=== PATIENT | male | born 1950 | race Caucasian/White ===

== ENCOUNTER 2021-01-15 11:07 | Emergency (ER) | payer MEDICARE, MEDICAID, SELFPAY ==
[2021-01-15] VITALS (9 sets, daily range): BP systolic 122–138; BP diastolic 64–73; PULSE 64–83; RESP 15–18; TEMP 36.5–37.1; O2SAT 95–99; BMI 30.8
--- NOTE | 2021-01-15 11:43 | RAD_ITS ---
STUDY: X-RAY CHEST REASON FOR EXAM: Male, 70 years old. Fever TECHNIQUE: Single AP portable view of the chest. COMPARISON: None. FINDINGS: The lungs are clear and expanded. There is no demonstrated pleural abnormality. Normal size heart. Normal mediastinum and michael. Normal visualized pulmonary arteries. Normal visualized aortic arch and descending thoracic aorta. Mild degenerative changes in the thoracic spine and right shoulder. There is no demonstrated abnormality of the visualized soft tissue structures of the upper abdomen. RAD/Chest 1 View (Portable) IMPRESSION: No active pulmonary disease. Electronically Signed: Jg Xie MD at 13:04 EDT Tel , Service support ,
--- NOTE | 2021-01-15 11:43 | EKG12_ITS ---
Test Reason : Blood Pressure : / mmHG Vent. Rate : 070 BPM Atrial Rate : 070 BPM P-R Int : 158 ms QRS Dur : 078 ms QT Int : 434 ms P-R-T Axes : 038 -22 027 degrees QTc Int : 468 ms Normal sinus rhythm Leftward axis Low voltage QRS Nonspecific T wave abnormality Prolonged QT Abnormal ECG Confirmed by THAI ADDISON, ALBERTO ([id number]), legal editor FRITZ CORRALES ([id number]) on 01/18/2021 10:30:53 AM Referred By: REBECA Confirmed By:ALBERTO ANDRE MD
--- NOTE | 2021-01-15 11:44 | EDS_ITS ---
HPI History of Present Illness Chief Complaint: Fever Informant: patient and spouse/S.O. Onset/Context/Timing Onset: Days (3) Context: Gradual Onset Timing: Continuous and Waxes and wanes Quality: 102.6 Current Severity: Mild Maximum Severity: Moderate Worsened by: nothing Relieved by: tylenol Associated Symptoms Associated Symptoms: myalgias, fatigue, abnormal taste; no other symptoms Narrative Narrative: As above, fever, myalgias, fatigue, and changes in taste this morning with no other symptoms. No cough or shortness of breath or GI symptoms. No problems urinating. No contact with anyone that he knows of who has been ill lately. No travel out of the area. Patient has never had Covid, and he did have the Pfizer vaccine both injections this past July. He did have a headache yesterday but it is gone now/today. [facility] Medical History (Updated 01/15/21 @ 15:[address] Neo Wells MD) Hypertension Type 2 diabetes mellitus Home Medications amoxicillin-pot clavulanate 875 mg PO Q12H #20 tablet 01/15/21 [Rx Last Taken Unknown] Allergy/AdvReac Type Severity Reaction Status Date / Time No Known Allergies Allergy Verified 01/15/21 11:09 Social History Smoking Status: Current every day smoker tobacco type: cigarettes ROS ROS ED Constitutional Constitutional ED: Reports body ache(s), chills, fever(s) and malaise Eyes Eyes: Denies change in vision or diplopia ENT ENT ED: Denies rhinorrhea or sore throat Cardiovascular Cardiovascular: Denies chest pain or palpitations Respiratory/Chest Respiratory/Chest: Denies cough or dyspnea Gastrointestinal Gastrointestinal: Denies abdominal pain, diarrhea, nausea or vomiting Genitourinary Genitourinary ED: Denies dysuria or hematuria Musculoskeletal Musculoskeletal: Denies back pain or neck pain Integumentary Denies abscess or rash Neurologic Neurologic: Denies headache(s), paresthesias or weakness Psychiatric Psychiatric: Denies anxiety or suicidal thoughts EXAM Physical Exam Const Vital Signs: 01/15/21 11:09 01/15/21 11:58 01/15/21 12:43 Temperature 98 F 98 F 98.5 F Temperature Source Oral Oral Oral Pulse Rate 83 Respiratory Rate 18 Respiratory Effort Normal Non-Labored Blood Pressure 138/73 H Blood Pressure Mean 94 Pulse Ox 98 95 Oxygen Delivery Method Room Air 01/15/21 13:00 01/15/21 13:08 01/15/21 14:00 Temperature 98.7 F 98.5 F Temperature Source Oral Oral Pulse Rate 64 Respiratory Rate 18 Respiratory Effort Blood Pressure 135/67 H Blood Pressure Mean 89 Pulse Ox 99 Oxygen Delivery Method Room Air 01/15/21 15:00 Temperature Temperature Source Pulse Rate 69 Respiratory Rate 18 Respiratory Effort Blood Pressure 122/64 H Blood Pressure Mean 83 Pulse Ox 99 Oxygen Delivery Method Room Air Positive well nourished and well developed General Appearance ED: well developed and NAD HEENT Reports moist mucous membranes normocephalic and atraumatic Face and Sinus: sinuses nontender Eyes PERRL and EOMs intact bilaterally Neck full ROM and supple Resp normal respiratory effort and clear to auscultation bilaterally Cardio regular rate, regular rhythm and no murmurs Rate: Negative for tachycardic GI non-tender and non-distended Auscultation: normoactive bowel sounds Palpation: soft Back/Spine no CVA tenderness General Back: other FROM Extremity normal to inspection General Extremety ED: Negative for edema, pulses abnormal or tenderness General Extremity: Negative for edema or pulses abnormal Neuro oriented x3, CN's II-XII intact bilaterally and no sensory deficits noted Sensorium / Orientation: awake and alert Motor Exam: strength 5/5 throughout Skin no rashes or lesions noted and no wounds MDM MDM MDM Narrative Medical decision making narrative: Work-up is remarkably unremarkable except for slightly elevated alkaline phosphatase which is nonspecific. He has no abdominal symptoms or vomiting. Given that he had headaches with this fever, which certainly could be a result of the fever itself, but has no other source including negative influenza and Covid swabs, I performed CT of the sinuses. It shows mucosal thickening in sphenoid sinus, and no other evidence of disease. It is certainly possible this could be the cause, however I am not sure if findings the soft or causing fevers of 102. The patient is very well-appearing and has no other symptoms. He has not traveled out of the area. He is neck is asymptomatic and he is not confused and in my opinion does not need a lumbar puncture. Certainly he could simply have a viral syndrome especially with a white blood count of 5.4. I think it would be reasonable to cover the sphenoid sinus findings with Augmentin and have him follow-up as an outpatient or return if worse, I discussed all this with he and his and they are comfortable with that plan. Lab Data Attestation: I reviewed the patient's lab results. Labs: Laboratory Results - last 24 hr 01/15/21 01/15/21 01/15/21 11:24 11:24 11:24 WBC 5.4 RBC 5.72 Hgb 16.7 H Hct 50.0 MCV 87.4 MCH 29.2 MCHC 33.4 RDW Std Deviation 44.3 H RDW Coeff of Samm 13.8 Plt Count 151 MPV 11.7 Immature Gran % (Auto) 0.600 Neut % (Auto) 75.6 H Lymph % (Auto) 12.9 L Sandoval % (Auto) 9.4 Eos % (Auto) 1.1 Baso % (Auto) 0.4 Absolute Neuts (auto) 4.1 Absolute Lymphs (auto) 0.70 L Nucleated RBC % 0 Sodium 137 Potassium 3.6 Chloride 105 Carbon Dioxide 25.0 Anion Gap 7 BUN 10 Creatinine 1.02 Estim Creat Clear Calc 67.39 Est GFR (MDRD) Af Amer 93 Est GFR (MDRD) Non-Af 77 BUN/Creatinine Ratio 9.8 L Glucose 112 H Lactic Acid 1.5 Calcium 8.6 Total Bilirubin 1.10 H AST 63 H ALT 61 Alkaline Phosphatase 226 H Total Protein 7.3 Albumin 3.5 Globulin 3.8 Albumin/Globulin Ratio 0.9 Urine Color Urine Clarity Urine pH Ur Specific [place] Urine Protein Urine Glucose (UA) Urine Ketones Urine Occult Blood Urine Nitrite Urine Bilirubin Urine Urobilinogen Ur Leukocyte Esterase Urine RBC Urine WBC Ur Squamous Epith Cells Urine Bacteria Urine Mucus 01/15/21 12:57 WBC RBC Hgb Hct MCV MCH MCHC RDW Std Deviation RDW Coeff of Samm Plt Count MPV Immature Gran % (Auto) Neut % (Auto) Lymph % (Auto) Sandoval % (Auto) Eos % (Auto) Baso % (Auto) Absolute Neuts (auto) Absolute Lymphs (auto) Nucleated RBC % Sodium Potassium Chloride Carbon Dioxide Anion Gap BUN Creatinine Estim Creat Clear Calc Est GFR (MDRD) Af Amer Est GFR (MDRD) Non-Af BUN/Creatinine Ratio Glucose Lactic Acid Calcium Total Bilirubin AST ALT Alkaline Phosphatase Total Protein Albumin Globulin Albumin/Globulin Ratio Urine Color Yellow Urine Clarity Clear Urine pH 5.0 Ur Specific [place] 1.020 Urine Protein 30 H Urine Glucose (UA) Normal Urine Ketones 5 H Urine Occult Blood Negative Urine Nitrite Negative Urine Bilirubin 3 H Urine Urobilinogen 4 H Ur Leukocyte Esterase 25 H Urine RBC 0 SEEN Urine WBC 0 SEEN Ur Squamous Epith Cells 0-5 SEEN Urine Bacteria 0 SEEN Urine Mucus 0 SEEN Radiography Chest X-Ray - ED: 1 View, Read by ED Physician and No Acute Disease Diagnostic Testing: Radiology Impression Chest X-Ray 01/15/21 11:43 IMPRESSION: No active pulmonary disease. Electronically Signed: Jg Xie MD at 13:04 EDT Tel , Service support , Facial/Sinus 01/15/21 13:13 IMPRESSION: 1. Mild mucosal thickening or retention cyst in the left sphenoid sinus. 2. Otherwise no evidence of sinus disease. Electronically Signed: Jg Xie MD at 14:44 EDT Tel , Service support , EKG Initial EKG: Attestation: I personally reviewed and interpreted this EKG as follows: Interpretation: Sinus Rhythm, No Acute Injury Pattern and Non-Specific ST Changes Comments: Leftward axis Discharge Plan Triage Chief Complaint: Fever ED Provider: Neo Wells Dx/Rx/DC Orders Clinical Impression: Fever, Sphenoid sinusitis Instructions: Understanding Your Sinuses, ED FUO Adult Prescriptions: New amoxicillin-pot clavulanate [amoxicillin-pot clavulanate] 875 MG tablet 875 mg PO Q12H Qty: 20 RF: 0 Primary Care Provider: Michael Cannon Referrals: Michael Cannon MD [Primary Care Provider] - 3-5 Days if not improving Disposition Disposition: Home, Self Care
[2021-01-15 11:56] LABS: Absolute Neutrophil Count 4.1 X10^3/uL (2.0-7.7); Basophil# 0.02 X10^3/uL; Basophil% 0.4 % (0-1); Eosinophil# 0.06 X10^3/uL; Eosinophils% 1.1 % (0-5); Hemoglobin 16.7 g/dL (13.0-16.5); Lymphocyte % 12.9 % (19-41); Mean Corp Hgb Conc 33.4 g/dL (32-36); Mean Corpuscular Hgb 29.2 pg (27.0-32.0); Mean Corpuscular Volume 87.4 fL (80-94); Mean Platelet Vol. 11.7 fl (6.2-12.0); Monocyte# 0.51 X10^3/uL; Monocyte% 9.4 % (0-10); NRBC Flagged by Analyzer 0 % (0-5); Neutrophil # 4.11 X10^3/uL (2.7-7.7); Neutrophil % 75.6 % (47-70); Platelet Count 151 K/mm3 (150-450); RBC Distribution Width CV 13.8 % (11.6-14.6); RBC Distribution Width SD 44.3 fl (35.1-43.9); Red Blood Count 5.72 M/mm3 (4.6-6.2); White Blood Count 5.4 K/mm3 (4.4-11.0)
[2021-01-15 12:03] LABS: ALB/GLOB Ratio 0.9 RATIO (0.9-2.4); AST(SGOT) 63 U/L (15-37); Alanine Aminotransfer ALT/SGPT 61 U/L (16-61); Albumin, Serum 3.5 g/dL (3.2-5.0); Alkaline Phosphatase 226 U/L (45-117); Anion Gap 7 (5-15); BUN 10 mg/dL (7-18); BUN/Creat Ratio 9.8 RATIO (10-20); Calcium,Total 8.6 mg/dL (8.5-10.1); Chloride 105 mmol/L (98-107); Creatinine, Serum 1.02 mg/dL (0.70-1.30); EST Glomerular Filtration Rate 77 mL/min (>60); Est Glom Filt Rate - Afr Amer 93 mL/min (>60); Estimated Creatinine Clearance 67.39 ml/min; Globulin 3.8 g/dL (2.2-4.2); Glucose 112 mg/dL (74-106); Potassium 3.6 mmol/L (3.5-5.1); Protein, Total 7.3 g/dL (6.4-8.2); Sodium Level 137 mmol/L (136-145)
[2021-01-15 12:06] LABS: Lactic Acid 1.5 mmol/L (0.4-1.9)
[2021-01-15 13:01] LABS: Bacteria 0 SEEN /hpf (None Seen); Mucous, Urine 0 SEEN /hpf (<or=2+); Red Blood Cells-Urine 0 SEEN /hpf (0-5); White Blood Cells 0 SEEN /hpf (0-5)
[2021-01-15 13:03] LABS: Color, Urine Yellow (Yellow); Glucose, Dipstick Normal (Normal); Ketone-Dipstick 5 mg/dl (Negative); Leukocyte Esterase-Dipstick 25 /ul (Negative); Nitrite-Dipstick Negative (Negative); Occult Blood-Urine Negative /ul (Negative); Protein-Dipstick 30 mg/dl (Negative); Urine Bilirubin Dipstick 3 mg/dL (Negative); Urine Clarity Clear (Clear); Urine Urobilinogen 4 mg/dl (Normal)
--- NOTE | 2021-01-15 13:13 | CT_ITS ---
STUDY: CT MAXILLOFACIAL SINUSES REASON FOR EXAM: Male, 70 years old. Fever, headache RADIATION DOSAGE (If Supplied By Facility): CTDIvol = ( 29.38 ) mGy, DLP = ( 407.88 ) mGycm TECHNIQUE: The patient was scanned in a multi detector CT scanner. High resolution axial imaging was performed without the administration of intravenous contrast material. Sagittal and coronal images were reconstructed. Individualized dose optimization techniques were used for this CT. COMPARISON: None. FINDINGS: FRONTAL SINUSES: Normal aeration, without mucosal inflammatory disease. ETHMOIDAL SINUSES: Normal aeration, without mucosal inflammatory disease. MAXILLARY SINUSES: Normal aeration, without mucosal inflammatory disease. SPHENOIDAL SINUSES: Mild mucosal thickening or retention polyp in the left sphenoid sinus. There is patency of the bilateral maxillary infundibuli with normal uncinate processes, ethmoid bullae, and hiatus semilunaris. Normal bilateral middle turbinates. Normal bilateral inferior turbinates. There is a right sided nasal septal deviation with a right sided nasal septal spur. There is patency of the bilateral nasal airways. The visualized osseous structures are normal. The visualized bilateral orbital contents are normal. CT/Sinus/Facial Bone IMPRESSION: 1. Mild mucosal thickening or retention cyst in the left sphenoid sinus. 2. Otherwise no evidence of sinus disease. Electronically Signed: Jg Xie MD at 14:44 EDT Tel , Service support ,
[2021-01-15 13:39] LABS: Squamous Epithelial Cells - UA 0-5 SEEN /hpf (0-5)
[2021-01-15] MEDS: Amox/Clavulanate 875 MG Tablet PO (15:47)
== END 2021-01-15 15:59 | disposition home or self-care (01) ==
PROVIDERS: Emergency Provider Emergency Medicine; PCP Family Medicine
DX: R50.9 Fever, unspecified (principal); J32.3 Chronic sphenoidal sinusitis; F17.210 Nicotine dependence, cigarettes, uncomplicated
CPT/HCPCS: 70486; 71045; 80053; 81001; 83605; 85025; 87040; 87086; 87426; 87804; 93005; 99285; A4216

== ENCOUNTER 2021-07-11 14:19 | Outpatient (CLI) | payer MEDICARE, MEDICAID, SELFPAY ==
--- NOTE | 2021-07-11 14:31 | CT_ITS ---
STUDY: CT FACIAL BONES WITHOUT CONTRAST REASON FOR EXAM: Male, 70 years old. ORAL LESION in the roof of the mouth. RADIATION DOSAGE (If Supplied By Facility): CTDIvol = ( 29.38 ) mGy, DLP = ( 635.61 ) mGycm TECHNIQUE: The patient was scanned in a multi detector CT scanner. Sagittal and coronal images were reconstructed. Individualized dose optimization techniques were used for this CT. COMPARISON: None. FINDINGS: Normal soft tissue structures. Normal orbital de los santos and orbital contents. Normal nasal bones and anterior nasal spine. Normal facial bones. There is no demonstrated fracture. Normal visualized paranasal sinuses. CT/Sinus/Facial Bone IMPRESSION: Normal unenhanced CT of the facial bones. Electronically Signed: Josiah Newton MD at 14:54 EST , Service support ,
== END 2021-07-11 23:59 | disposition short-term general hospital (02) ==
LOC: CT 14:27
PROVIDERS: PCP Family Medicine; Referring Provider Otolaryngology; Visit Provider Otolaryngology
DX: D37.09 Neoplasm of uncertain behavior of other specified sites of the oral cavity (principal); R22.0 Localized swelling, mass and lump, head
CPT/HCPCS: 70486

== ENCOUNTER 2021-07-19 05:45 | Day surgery (SDC) | payer MEDICARE, MEDICAID, SELFPAY ==
--- NOTE | 2021-07-19 | LES_PTH ---
PATIENT: WILMER BARAJAS Jr. LOC: [facility] [place] U#:[id number] AGE/SX: 70/M ROOM: RE07/19/[address]: Dr. Brendon Rose MD : 1950 BED: DIS: 07/19/2021 SPEC #: [id number] RECD: 07/19/21 12:37 STATUS: ANKUSH RELamberto #: [id number] KEITH: 07/19/21 00:[address]: Brendon Rose DEPT: SURGICAL PATHOLOGY RECD BY: Kartik Shields ENTERED: 07/19/21 12:38 SP TYPE: Lesion OTHR DR: Dr. Michael Cannon MD Tissues: Palate, NOS Procedures: Special Stain Group I Surgery Specimen Level IV GMS Stain (control) HEADER OPERATION: Excision oral lesions PRE-OP DIAGNOSIS: Neoplasm of oral cavity TISSUE SUBMITTED: Hard palate lesion MICROSCOPIC DIAGNOSIS Hard palate lesion, excision: Benign vascular proliferations consistent with hemangioma. Acanthosis, hyperkeratosis and parakeratosis. See comment. YAMILA:rosey 07/20/2021 COMMENT Special stain for fungi is negative for organisms; matched control is appropriate. Clinical correlation and appropriate follow up are necessary. Case has been reviewed in consultation with Dr. Mccarthy who concurs with the above diagnosis. IDC:AM MICROSCOPIC DESCRIPTION Slides are reviewed. GROSS DESCRIPTION Received in fixative is one container labeled with the patient's name and designated hard palate lesion. The specimen consists of a round piece of chavez mucosa measuring 0.5 x 0.5 x 0.1 cm. The specimen is inked, bisected and submitted entirely in one cassette. / YAMILA:rosey 07/19/2021 TC:1 CPT: 54416, 03397
[2021-07-19 06:26] VITALS: BP 140/76; PULSE 69; RESP 18; TEMP 36.9; O2SAT 100; BMI 31.8
[2021-07-19] MEDS: Lactated Ringers 1,000 ML 15 ML IV (06:46)
[2021-07-19 07:06] LABS: Bedside Glucose 147 mg/dL (70-110)
[2021-07-19] MEDS: Lidocaine 1% /Epi 1:100 (50ml) 50 ML VIAL (08:20)
--- NOTE | 2021-07-19 08:35 | PCM.DC ---
Discharge Instructions Diet Discharge Diet: No restrictions Activity Discharge Activity: Return to Normal Activity Follow Up Care Please Follow Up With: Andrew Rose MD When: 1 month Test Results: Test results from this visit will be discussed in further detail at your follow-up appointment, if applicable. Discharge Plan Admission Attending Provider: Andrew Rose Primary Care Provider: Michael Cannon Discharge Orders/Prescriptions Prescriptions: No Action atorvastatin 40 mg tablet 40 mg PO QHS RF: 0 pioglitazone [Actos] 45 mg tablet 45 mg PO DAILY RF: 0 omeprazole 40 mg capsule,delayed release(DR/EC) 40 mg PO DAILY RF: 0 amlodipine 10 mg tablet 10 mg PO DAILY RF: 0 lisinopril 40 mg tablet 40 mg PO DAILY RF: 0 magnesium oxide 250 mg magnesium Tablet 250 mg PO BID RF: 0 Januvia 100 mg tablet 100 mg PO DAILY RF: 0 aspirin 81 mg Capsule 81 mg PO DAILY RF: 0 Disposition Discharge Orders: Discharge Patient (Routine); Ordered 07/19/21 Ordered By: Dr. Andrew Rose
--- NOTE | 2021-07-19 08:36 | PCM.OPRPT ---
Problems Associated Problem List Diagnoses (1) Mass of oral cavity: Report of Operation Date of Procedure: 07/19/21 Pre-Operative Diagnosis: oral cavity lesion Post-Operative Diagnosis: oral cavity lesion Surgery/Procedure Performed:: excisional biopsy hard palate lesion Surgeon: Andrew Rose Type of Anesthesia: General Description of Procedure: on the day of the procedure, after appropriate informed consent was obtained, the patient was brought to the operating room and placed in supine position on the operating table. he was placed under general endotracheal anesthesia by the anesthesiologist. the endotracheal tube was secured, the eyes were taped. the table was rotated 90 degrees toward the surgeon. a retractor was placed to open the mouth. a 5mm midline anterior hard palate papular lesion was excised with a 15 blade and cauterized. he was awoken from anesthesia and transferred to the PACU in stable condition.
[2021-07-19 08:39] VITALS: BP 140/76; BP 161/79; PULSE 81; RESP 16; TEMP 36.3; O2SAT 95
[2021-07-19 08:45] VITALS: BP 140/76; BP 152/75; PULSE 80; RESP 16; O2SAT 98
[2021-07-19 08:46] LABS: Bedside Glucose 113 mg/dL (70-110)
[2021-07-19 08:59] VITALS: BP 140/76; BP 140/80; PULSE 76; RESP 16; TEMP 37.1; O2SAT 96
[2021-07-19 09:25] VITALS: BP 140/76
== END 2021-07-19 23:59 | disposition home or self-care (01) ==
LOC: SDC 05:46 → AC 05:47
PROVIDERS: PCP Family Medicine; Referring Provider Otolaryngology; Visit Provider Otolaryngology
PROC: (CPT 42104; principal; 2021-07-19 07:55)
DX: D10.39 Benign neoplasm of other parts of mouth (principal); E11.9 Type 2 diabetes mellitus without complications; Z79.4 Long term (current) use of insulin; M19.90 Unspecified osteoarthritis, unspecified site; K21.9 Gastro-esophageal reflux disease without esophagitis; E78.00 Pure hypercholesterolemia, unspecified; I10 Essential (primary) hypertension; Z79.82 Long term (current) use of aspirin; Z79.899 Other long term (current) drug therapy; F17.200 Nicotine dependence, unspecified, uncomplicated
CPT/HCPCS: 42104; 82962; 88305; 88312; J7120; J0330; J2405

== ENCOUNTER → 2022-05-11 | Outpatient (CLI) | payer MEDICARE, MEDICAID, SELFPAY ==
--- NOTE | 2022-05-11 13:29 | CT_ITS ---
STUDY: LOW DOSE CT LUNG CANCER SCREENING REASON FOR EXAM: Male, 71 years old. HX NICOTINE DEPENDENCE RADIATION DOSAGE (If Supplied By Facility): CTDIvol = ( 4.02 ) mGy, DLP = ( 135.92 ) mGycm TECHNIQUE: No contrast was administered. Low dose technique was utilized (average mAS-38 and kVp 120). 1.25 mm axial source images with a slice interval of 1.25-mm were reconstructed in lung windows. 2.5 mm axial source images with a slice interval of 2.5-mm were reconstructed in lung windows. 5.0 mm axial source images with a slice interval of 5.0-mm were reconstructed in soft tissue windows. COMPARISON: None. NODULES: Small calcified granuloma in the right lung apex. Emphysema: Mild degree of emphysematous changes. There is a 1.97 x 1.7 cm bulla in the posterior aspect of the right upper lobe. Endobronchial lesion: None Aorta: Atherosclerotic calcific plaques. CORONARY ARTERIES: Coronary artery calcification is seen. Heart: Unremarkable Pulmonary artery: Unremarkable Mediastinal nodes: Small mediastinal lymph nodes. Other chest and abdominal findings: CT/Low Dose CT Lung Screening IMPRESSION: Lung-RADS category 2 - Continue annual screening with LDCT in 12 months. IMPORTANT NOTES FOR USE: ACR Lung-RADS Version 1.1 Assessment Categories Release Date: 2018 Category: Coded 0-4 bases on nodule(s) with highest degree of suspicion. Negative screen is defined as categories 1 and 2; a positive screen is defined as categories 3 and 4. Category 3 and 4A nodules that are unchanged on interval CT should be coded as category 2, and individuals returned to screening in 12 months. Category 4X: Category 3 or 4 nodules with additional imaging findings that increase the suspicion of lung cancer, such as spiculation, GGN that doubles in size in 1 year, enlarged lymph notes, etc. Category Modifiers: S (significant finding unrelated to lung cancer) Electronically Signed: Josiah Newton MD at 14:02 EST ,
== END | disposition home or self-care (01) ==
LOC: CT 13:24
PROVIDERS: PCP Family Medicine; Referring Provider Family Medicine; Visit Provider Family Medicine
DX: Z87.891 Personal history of nicotine dependence (principal)
CPT/HCPCS: 71271

== ENCOUNTER → 2022-08-16 | Outpatient (CLI) | payer MEDICARE, SELFPAY ==
[2022-08-16 10:29] LABS: International Normalized Ratio 1.1; Prothrombin Time (Protime)PT. 14.2 SECONDS (11.7-14.9)
[2022-08-16 11:03] LABS: Erythrocyte Sedimentation Rate 5 mm/hr (0-20)
[2022-08-16 11:05] LABS: Absolute Neutrophil Count 5.4 X10^3/uL (2.0-7.7); Basophil# 0.05 X10^3/uL; Basophil% 0.7 % (0-1); Eosinophil# 0.09 X10^3/uL; Eosinophils% 1.3 % (0-5); Hematocrit 48.2 % (40-54); Hemoglobin 15.9 g/dL (13.0-16.5); Lymphocyte % 15.5 % (19-41); Mean Corpuscular Hgb 29.8 pg (27.0-32.0); Mean Corpuscular Volume 90.4 fL (80-94); Mean Platelet Vol. 12.8 fl (6.2-12.0); Monocyte# 0.42 X10^3/uL; Monocyte% 5.9 % (0-10); NRBC Flagged by Analyzer 0 % (0-5); Neutrophil % 75.9 % (47-70); Platelet Count 164 K/mm3 (150-450); RBC Distribution Width SD 46.5 fl (35.1-43.9); Red Blood Count 5.33 M/mm3 (4.6-6.2); White Blood Count 7.1 K/mm3 (4.4-11.0)
[2022-08-16 11:06] LABS: Hemoglobin A1c 5.8 % (3.8-5.6)
[2022-08-16 11:42] LABS: ALB/GLOB Ratio 1.1 RATIO (0.9-2.4); AST(SGOT) 44 U/L (15-37); Alanine Aminotransfer ALT/SGPT 51 U/L (16-61); Albumin, Serum 3.7 g/dL (3.2-5.0); Alkaline Phosphatase 164 U/L (45-117); Anion Gap 8 (5-15); BUN 14 mg/dL (7-18); BUN/Creat Ratio 12.6 RATIO (10-20); CRP < 2.90 mg/L (0.0-3.0); Chloride 109 mmol/L (98-107); Creatinine, Serum 1.11 mg/dL (0.70-1.30); EST Glomerular Filtration Rate 69 mL/min (>60); Est Glom Filt Rate - Afr Amer 84 mL/min (>60); Ferritin 55 ng/mL (26-388); Globulin 3.4 g/dL (2.2-4.2); Glucose 104 mg/dL (74-106); LDH 182 U/L (87-241); Potassium 3.9 mmol/L (3.5-5.1); Protein, Total 7.1 g/dL (6.4-8.2); Sodium Level 141 mmol/L (136-145)
[2022-08-16 12:40] LABS: HIV - WCH Non-Reactive (Nonreactive)
[2022-08-17 14:09] LABS: Anti-Centromere B Ab <0.2 AI (0.0-0.9); Anti-Chromatin <0.2 AI (0.0-0.9); Anti-Jo <0.2 AI (0.0-0.9); Anti-Scleroderma-70 AB <0.2 AI (0.0-0.9); RNP Ab <0.2 AI (0.0-0.9); SJOGREN'S Anti-SS-A test < 0.2 AI (0.0-0.9); SJOGREN'S Anti-SS-B test < 0.2 AI (0.0-0.9); Smith Ab <0.2 AI (0.0-0.9)
[2022-08-17 22:53] LABS: Anti-Mitochondrial AB <20.0 Units (0.0-20.0); Anti-dsDNA Ab <1 IU/mL (0-9)
[2022-08-18 02:08] LABS: Angiotensin Convert Enzyme 17 U/L (14-82); Ceruloplasmin 22.5 mg/dL (16.0-31.0); Cytoplasmic Ab (C-ANCA) <1:20 titer (Neg:<1:20); HEPATITIS B SURFACE AG Negative (Negative); Hep C Antibodies Non Reactive (Non Reactive); Hepatitis A IgM Antibody Negative (Negative); Hepatitis B Core AB IgM Negative (Negative)
[2022-08-18 19:59] LABS: AFP, Tumor Marker 3.1 ng/mL (0.0-8.4); Anti-Smooth Muscle ABS 19 Units (0-19); Copper, Serum or Plasma 99 ug/dL (69-132); Haptoglobin 141 mg/dL (34-355); Perinuclear Ab (P-ANCA) <1:20 titer (Neg:<1:20)
== END | disposition home or self-care (01) ==
PROVIDERS: PCP Family Medicine; Referring Provider Nurse Practitioner Adult Health; Visit Provider Nurse Practitioner Adult Health
DX: R74.8 Abnormal levels of other serum enzymes (principal); E11.9 Type 2 diabetes mellitus without complications; Z79.899 Other long term (current) drug therapy
CPT/HCPCS: 36415; 80053; 80074; 82105; 82140; 82164; 82390; 82525; 82728; 83010; 83036; 83516; 83615; 85025; 85610; 85652; 86140; 86225; 86235; 86256; 86703

== ENCOUNTER → 2022-08-30 | Outpatient (CLI) | payer MEDICARE, MEDICAID, SELFPAY ==
--- NOTE | 2022-08-30 09:04 | US_ITS ---
STUDY: ABDOMINAL ULTRASOUND - ELASTOGRAPHY REASON FOR VISIT: Male, 71 years old. Elevated liver enzymes. Fatty infiltration of the liver. TECHNIQUE: Liver stiffness measurements were obtained on a [employer] RS 85 ultrasound machine using a CA 1-7 probe following the SRU guidelines. 3 measurements were obtained using a 2-D-SWE method. TheIQR/M was 19 % suggesting a quality data set. TECHNICAL QUALITY: Adequate. COMPARISON: Comparison is made with prior examination done earlier today. FINDINGS: Liver: Mild hepatomegaly and fatty infiltration of the liver. Median liver stiffness measured 9.4 kPa. US/Elastography Parenchyma/Organ IMPRESSION: Liver stiffness measures 9.4 kPa compatible with F2-F3 (Mild to moderate liver fibrosis) Metavir score. Electronically Signed: Josiah Newton MD at 18:03 EST ,
--- NOTE | 2022-08-30 09:04 | US_ITS ---
STUDY: ABDOMINAL ULTRASOUND - RIGHT UPPER QUADRANT REASON FOR VISIT: Male, 71 years old elevated liver enzymes TECHNIQUE: Ultrasound evaluation of the right upper quadrant was performed with real-time and static kay-scale imaging. TECHNICAL QUALITY: Adequate. COMPARISON: None. FINDINGS: Liver: The liver is mildly enlarged and measures 18.1 cm. There is increased echogenicity consistent with fatty infiltration. The bile ducts are within normal limits. There is hepatic color flow. The direction of portal flow is hepatopetal. There is no demonstrated mass lesion. Gallbladder: Normal distended gallbladder. The gallbladder wall measures 2.9 mm. There is a negative sonographic Jacob''s sign. There is no pericholecystic fluid. There are multiple echogenic structures within the gallbladder, consistent with multiple gallstones. There is also evidence of 2 small gallbladder polyps. Common Bile Duct (C.B.D.): The common bile duct measures 3.7 mm. Pancreas: Normal size of the head, body and tail of the pancreas. There is increased echogenicity of the pancreas. There is no demonstrated pancreatic mass or cyst. Right Kidney: Normal size of the right kidney. The right kidney measures 11.4 cm x 5.8 cm x 4.2 cm. Normal renal cortex. The right cortex measures 1.4 cm. There is a 1.5 cm x 1.2 cm x 1.3 cm cyst in the lower pole of the right kidney. There is no right hydronephrosis. US/Abdomen Limited IMPRESSION: Mild hepatomegaly and fatty infiltration of the liver. Multiple gallstones. 2. Small gallbladder polyps. Electronically Signed: Josiah Newton MD at 18:02 [facility] ,
== END | disposition home or self-care (01) ==
PROVIDERS: PCP Family Medicine; Referring Provider Nurse Practitioner Adult Health; Visit Provider Nurse Practitioner Adult Health
DX: R74.8 Abnormal levels of other serum enzymes (principal)
CPT/HCPCS: 76705; 76981

== ENCOUNTER → 2022-11-21 | Outpatient (CLI) | payer MEDICARE, MEDICAID, SELFPAY ==
[2022-11-21 09:56] LABS: Absolute Lymphocyte Count 1.08 X10^3/uL (0.83-4.51); Absolute Neutrophil Count 5.9 X10^3/uL (2.0-7.7); Basophil# 0.04 X10^3/uL; Basophil% 0.5 % (0-1); Eosinophil# 0.09 X10^3/uL; Eosinophils% 1.2 % (0-5); Hematocrit 49.3 % (40-54); Lymphocyte # 1.08 X10^3/ul (0.83-4.51); Lymphocyte % 14.2 % (19-41); Mean Corp Hgb Conc 32.5 g/dL (32-36); Mean Corpuscular Hgb 29.7 pg (27.0-32.0); Mean Corpuscular Volume 91.5 fL (80-94); Mean Platelet Vol. 12.8 fl (6.2-12.0); Monocyte# 0.48 X10^3/uL; Monocyte% 6.3 % (0-10); NRBC Flagged by Analyzer 0 % (0-5); Neutrophil % 77.4 % (47-70); Platelet Count 158 K/mm3 (150-450); RBC Distribution Width CV 13.8 % (11.6-14.6); RBC Distribution Width SD 46.7 fl (35.1-43.9); Red Blood Count 5.39 M/mm3 (4.6-6.2); White Blood Count 7.6 K/mm3 (4.4-11.0)
[2022-11-21 10:20] LABS: International Normalized Ratio 1.1; Prothrombin Time (Protime)PT. 13.7 SECONDS (11.7-14.9)
[2022-11-21 10:24] LABS: ALB/GLOB Ratio 0.9 RATIO (0.9-2.4); AST(SGOT) 27 U/L (15-37); Alanine Aminotransfer ALT/SGPT 31 U/L (16-61); Albumin, Serum 3.5 g/dL (3.2-5.0); Alkaline Phosphatase 144 U/L (45-117); Anion Gap 5 (5-15); BUN 13 mg/dL (7-18); BUN/Creat Ratio 11.9 RATIO (10-20); Calcium,Total 9.2 mg/dL (8.5-10.1); Chloride 108 mmol/L (98-107); Creatinine, Serum 1.09 mg/dL (0.70-1.30); EST Glomerular Filtration Rate 71 mL/min (>60); Est Glom Filt Rate - Afr Amer 86 mL/min (>60); Globulin 3.9 g/dL (2.2-4.2); Glucose 115 mg/dL (74-106); Potassium 4.1 mmol/L (3.5-5.1); Protein, Total 7.4 g/dL (6.4-8.2); Sodium Level 142 mmol/L (136-145)
== END | disposition home or self-care (01) ==
LOC: LAB 09:11
PROVIDERS: PCP Family Medicine; Referring Provider Nurse Practitioner Adult Health; Visit Provider Nurse Practitioner Adult Health
DX: K76.0 Fatty (change of) liver, not elsewhere classified (principal); K13.79 Other lesions of oral mucosa
CPT/HCPCS: 36415; 80053; 82140; 85025; 85610

== ENCOUNTER → 2023-03-14 | Outpatient (CLI) | payer MEDICARE, MEDICAID, SELFPAY ==
--- NOTE | 2023-03-14 08:40 | US_ITS ---
STUDY: ABDOMINAL ULTRASOUND - RIGHT UPPER QUADRANT; ELASTOGRAPHY REASON FOR VISIT: Male, 72 years old. Fatty infiltration of the liver. TECHNIQUE: Ultrasound evaluation of the right upper quadrant was performed with real-time and static kay-scale imaging. Point quantification shear wave elastography was performed ([employer]). TECHNICAL QUALITY: Adequate. COMPARISON: Comparison is made with prior study dated August 30, 2022. FINDINGS: Liver: The liver is enlarged and measures 19.2 cm. There is increased echogenicity consistent with fatty infiltration. The bile ducts are within normal limits. There is hepatic color flow. The direction of portal flow is hepatopetal. There is no demonstrated mass lesion. Median liver stiffness measured 11.3 kPa. Gallbladder: Normal distended gallbladder. The gallbladder wall measures 2.8 mm. There is a negative sonographic Jacob''s sign. There is no pericholecystic fluid. There are multiple echogenic structures within the gallbladder, consistent with multiple gallstones. 2 small gallbladder polyps are seen. Common Bile Duct (C.B.D.): The common bile duct measures 2.5 mm. Pancreas: There is increased echogenicity of the pancreas. There is no demonstrated pancreatic mass or cyst. Right Kidney: Normal size of the right kidney. The right kidney measures 11.3 cm x 5.3 cm x 4.8 cm. Normal renal cortex. The right cortex measures 1.6 cm. There is a 1.3 cm x 1.9 cm x 1.8 cm renal cyst. There is no right hydronephrosis. US/ABD Limited w/ Elastography IMPRESSION: 1. Liver stiffness measures 11.3 kPa compatible with F2-F3 (Mild to moderate liver fibrosis) Metavir score. Electronically Signed: Josiah Newton MD at 10:26 EDT ,
== END | disposition home or self-care (01) ==
LOC: US 08:36
PROVIDERS: PCP Family Medicine; Referring Provider Internal Medicine Gastroenterology; Visit Provider Internal Medicine Gastroenterology
DX: K76.0 Fatty (change of) liver, not elsewhere classified (principal)
CPT/HCPCS: 76705; 76981

== ENCOUNTER → 2023-12-04 | Outpatient (CLI) | payer MEDICARE, MEDICAID, SELFPAY ==
--- NOTE | 2023-12-04 07:45 | CT_ITS ---
STUDY: CT ABDOMEN AND PELVIS WITH AND WITHOUT CONTRAST REASON FOR EXAM: Male, 73 years old. NAFLD, R/O HCC -- Triple phase, HCC protocol RADIATION DOSAGE (If Supplied By Facility): CTDIvol = ( 20.57 ) mGy, DLP = ( 2232.22 ) mGycm TECHNIQUE: Transaxial images were obtained from the dome of the diaphragm to the symphysis pubis without oral contrast. ISOVUE 300-100ml was administered. Sagittal and coronal images were reconstructed. Individualized dose optimization techniques were used for this CT. COMPARISON: None. FINDINGS: The visualized lung bases are unremarkable. Coronary artery calcification. Minimal anterior pericardial thickening. There is decreased attenuation of the liver consistent with steatosis. Hepatomegaly. There are small gallstones. Normal spleen. Normal pancreas. There is a small, circumscribed, smooth, low attenuation right adrenal mass, consistent with an adrenal adenoma. This measures 1.6 cm. Normal left adrenal gland. There is a 1.5 cm hypodense nodule in the peripheral lateral aspect of the midportion of the right kidney. This is not a typical cyst. Correlation with ultrasound recommended. There is a 1.1 cm fat-containing nodule in the midportion of left kidney suggestive of a small angiomyolipoma. There is a small hiatal hernia. Normal small intestine. Normal colon. The appendix is visualized and appears normal. There is scattered atherosclerotic calcification of the abdominal aorta, without a demonstrated aneurysm. Normal inferior vena cava. Normal retroperitoneum. Bladder wall thickening. Diffuse heterogeneous enlargement of the prostate with indentation of the bladder base. This measures 6.1 cm x 6.6 cm. Normal abdominal wall. There are diffuse degenerative changes of the visualized lumbar spine. CT/CT Abd/Pelvis W/WO Contrast IMPRESSION: Hepatomegaly and fatty infiltration of the liver. Small gallstones. Findings suggestive of a 1.6 cm right adrenal adenoma. Left renal angiomyolipoma. Hypodense nodule in the right kidney. This atypical cyst. Correlation with ultrasound recommended. Heterogeneous enlargement of the prostate with indentation of the bladder base. Electronically Signed: Josiah Newton MD at 14:08 EDT ,
[2023-12-04 08:16] LABS: CREATININE FINGERSTICK 1.2 mg/dL (0.70-1.30); EGFR FINGERSTICK > 60.0000 mL/min (>60)
[2023-12-04 08:24] LABS: Basophil# 0.04 X10^3/uL; Basophil% 0.7 % (0-1); Eosinophil# 0.12 X10^3/uL; Eosinophils% 2.1 % (0-5); Hematocrit 47.4 % (40-54); Hemoglobin 15.8 g/dL (13.0-16.5); Mean Corp Hgb Conc 33.3 g/dL (32-36); Mean Corpuscular Hgb 29.9 pg (27.0-32.0); Mean Corpuscular Volume 89.6 fL (80-94); Monocyte# 0.38 X10^3/uL; Monocyte% 6.6 % (0-10); NRBC Flagged by Analyzer 0 % (0-5); Neutrophil # 3.96 X10^3/uL (2.7-7.7); Neutrophil % 69.3 % (47-70); Platelet Count 134 K/mm3 (150-450); RBC Distribution Width CV 13.5 % (11.6-14.6); RBC Distribution Width SD 44.4 fl (35.1-43.9); Red Blood Count 5.29 M/mm3 (4.6-6.2); White Blood Count 5.7 K/mm3 (4.4-11.0)
[2023-12-04 08:36] LABS: International Normalized Ratio 1.1; Prothrombin Time (Protime)PT. 14.2 SECONDS (11.7-14.9)
[2023-12-04 08:50] LABS: Vitamin D,25 Hydroxy 30.3 ng/mL
[2023-12-04 08:55] LABS: ALB/GLOB Ratio 0.9 RATIO (0.9-2.4); AST(SGOT) 22 U/L (15-37); Alanine Aminotransfer ALT/SGPT 23 U/L (16-61); Albumin, Serum 3.7 g/dL (3.2-5.0); Alkaline Phosphatase 115 U/L (45-117); Anion Gap 5 (5-15); BUN 20 mg/dL (7-18); BUN/Creat Ratio 18.9 RATIO (10-20); CRP < 2.90 mg/L (0.0-3.0); Calcium,Total 8.9 mg/dL (8.5-10.1); Chloride 110 mmol/L (98-107); Creatinine, Serum 1.06 mg/dL (0.70-1.30); EST Glomerular Filtration Rate 73 mL/min (>60); Est Glom Filt Rate - Afr Amer 88 mL/min (>60); Globulin 3.9 g/dL (2.2-4.2); Glucose 126 mg/dL (74-106); Potassium 3.8 mmol/L (3.5-5.1); Protein, Total 7.6 g/dL (6.4-8.2); Sodium Level 140 mmol/L (136-145)
[2023-12-05 09:11] LABS: AFP, Tumor Marker 3.3 ng/mL (0.0-8.4)
== END | disposition home or self-care (01) ==
PROVIDERS: PCP Family Medicine; Referring Provider Internal Medicine; Visit Provider Internal Medicine
DX: K76.0 Fatty (change of) liver, not elsewhere classified (principal); K74.00 Hepatic fibrosis, unspecified; K13.79 Other lesions of oral mucosa; R74.8 Abnormal levels of other serum enzymes
CPT/HCPCS: 36415; 74178; 80053; 82105; 82306; 85025; 85610; 86140; Q9967

== ENCOUNTER 2023-12-17 06:45 | Day surgery (SDC) | payer MEDICARE, MEDICAID, SELFPAY ==
[2023-12-17] VITALS (8 sets, daily range): BP systolic 118–161; BP diastolic 64–74; PULSE 58–64; RESP 16–18; TEMP 36.4–37.2; O2SAT 95–98; BMI 29.8
--- NOTE | 2023-12-17 07:20 | PRE.ANES_ITS ---
ASA Classification* ASA Classification ASA Classification: 2 Assessment & Plan Anesthesia* Anesthesia Assessment Anesthesia Assessment: Discussed sedation and/or anesthesia options, risks, benefits, and alternatives with patient/parents/legal guardian/POA. Questions invited. The patient/parents/legal guardian/POA seems to understand and agrees to proceed with anesthesia plan. Reviewed the physical assessment, medical history, allergy history and patient home medications list prior to surgery/procedure/anesthetic and documented any changes. Performed airway and anesthesia risk assessments. 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 When Was Last Pacemaker Check QUESTION #4 FULL TEXT: You/Your Family Experience fever (hyperthermia) with Anesthesia Last Oral Intake Last Oral intake: Last Oral Intake NPO since Meds taken in AM with sips of water? Meds patient instructed to take am of surgery PONV PONV - household appliances service technician: PONV - household appliances service technician Female No 12/11/23 15:27 HX of Motion Sickness No 12/11/23 15:27 HX of N/V After Surgery No 12/11/23 15:27 Non-Smoker No 12/11/23 15:27 Duration of Surgery greater No 12/11/23 15:27 than 60 minutes Number of Risk Factors PONV Score Height & Weight Height & Weight: Anesthesia: Height & Weight Height 5 ft 9 in 12/04/23 10:03 Respiratory Assessment Respiratory Assessment - household appliances service technician: Respiratory Tract Infection Hx - household appliances service technician Hx Respiratory Tract Infection No 12/11/23 15:27 STOP Sleep Apnea STOP Sleep Apnea - household appliances service technician: STOP Sleep Apnea - household appliances service technician Hx Hypertension Yes: CONTROLLED ON MED 12/11/23 15:27 Hx Sleep Apnea No 12/11/23 15:27 CPAP BIPAP Do you snore loudly (louder No 12/11/23 15:27 than talking or can be heard Do you often feel tired/ No 12/11/23 15:27 fatigued/ sleepy during daytime? Has anyone observed you stop No 12/11/23 15:27 breathing during sleep? STOP Results Negative 12/11/23 15:27 QUESTION #5 FULL TEXT : Do you snore loudly (louder than talking or can be heard through closed doors)? Tobacco Use History Tobacco Use History - household appliances service technician: Tobacco Use History - household appliances service technician Tobacco Use Smoking Status Current every day smoker 12/11/23 15:27 Hx Tobacco Use Yes 12/11/23 15:27 Years Smoking Packs Smoked per Day Smoking Cessation Date was within the last 15 years Hx Smoking Cessation Date Hx Smoking Cessation Counseling Hematologic Medial History Hematologic Hx - household appliances service technician: Hematologic Medical Hx - documentation supervisor Hx of Blood Transfusion No 12/11/23 15:27 Hx of Transfusion in last 3 No 12/11/23 15:27 Months Date of Last Transfusion (if within last 3 months) Ever experience any problems No 12/11/23 15:27 with transfusion(s)? Specify any problems Hx of Preganancy in last 3 N/A 12/11/23 15:27 Months Nurse Filling Out Transfusion VCHRISTIN 12/11/23 15:27 & Questions: Date: 12/11/23 12/11/23 15:27 Time: 15:28 12/11/23 15:27 Patient unable to answer at this time (ie. confused, unrespo /Reproduction History /Reproductive History - household appliances service technician: /Reproductive Hx- household appliances service technician Hx Now Gestational Age (in weeks): EDC: Hx Hx Para Hx Section SAB Active Medications Active Medications: Current Medications Generic Name Dose Route Start Last Admin Trade Name Freq PRN Reason Stop Dose Admin Lactated Ringer's 1,000 mls @ 15 mls/hr 12/17/23 07:00 IV .Q48H [facility] Anesthesia Focused Assessment* Airway Assessment Mouth opens: >3 cm Mallampati Score: II Focused Labs Anesthesia Preop lab: CBC WBC 5.7 K/mm3 (4.4-11.0) 12/04/23 07:38 RBC 5.29 M/mm3 (4.6-6.2) 12/04/23 07:38 Hgb 15.8 g/dL (13.0-16.5) 12/04/23 07:38 Hct 47.4 % (40-54) 12/04/23 07:38 Plt Count 134 K/mm3 (150-450) L 12/04/23 07:38 CHEMISTRY Potassium 3.8 mmol/L (3.5-5.1) 12/04/23 07:38 Sodium 140 mmol/L (136-145) 12/04/23 07:38 BUN 20 mg/dL (7-18) H 12/04/23 07:38 Creatinine 1.06 mg/dL (0.70-1.30) 12/04/23 07:38 Glucose 126 mg/dL (74-106) H 12/04/23 07:38 POC Glucose 113 mg/dL (70-110) H 07/19/21 08:42 COAG PT 14.2 SECONDS (11.7-14.9) 12/04/23 07:38 Review of Systems (Anesthesia) ROS Narrative System reviewed and no additional complaints, except as documented. [facility] Medical History Encounter for screening colonoscopy HLD (hyperlipidemia) History of colon polyps Osteoarthritis Elevated PSA BPH (benign prostatic hyperplasia) Barretts esophagus Asthma with COPD Altered bowel habits Elevated alkaline phosphatase level VARGAS (nonalcoholic steatohepatitis) Smokeless tobacco use Wears glasses Arthritis High cholesterol Gastric reflux Smoker Type 2 diabetes mellitus Hypertension Home Medications ?Medication ?Instructions ?Recorded ?Last Taken ?Type amlodipine 10 mg tablet 10 mg PO DAILY 07/13/21 07/18/21 History aspirin 81 mg capsule 81 mg PO DAILY 07/13/21 07/11/21 History atorvastatin 40 mg tablet 40 mg PO QHS 07/13/21 07/18/21 History lisinopril 40 mg tablet 40 mg PO DAILY 07/13/21 07/18/21 History magnesium oxide 500 mg PO BID 07/13/21 07/18/21 History omeprazole 40 mg capsule,delayed 40 mg PO DAILY 07/13/21 07/18/21 History release albuterol sulfate 90 mcg/actuation 1 inh inhalation PRN 05/12/22 Unknown History aerosol inhaler (Ventolin HFA) ursodiol 250 mg tablet See Rx Instructions .Route 08/27/23 Unknown Rx .COMPLEX #60 tabs omega-3 fatty acids 500 mg PO DAILY 12/11/23 Unknown History pioglitazone 30 mg tablet 30 mg PO DAILY 12/11/23 Unknown History vitamin E 268 mg (400 unit) capsule 268 mg PO BID 12/11/23 Unknown History Allergy/AdvReac Type Severity Reaction Status Date / Time No Known Allergies Allergy Verified 12/11/23 15:18 Family History Father Hypertension HLD (hyperlipidemia) Diabetes TIA (transient ischemic attack) Ischemic heart disease Mother Osteoarthritis Uterine cancer Surgical History Hx of surgical procedure History of tonsillectomy Hx of colonoscopy Social History Smoking Status: Current every day smoker tobacco type: cigarettes and smokeless tobacco
[2023-12-17] MEDS: Lactated Ringers 1,000 ML 15 ML IV (07:40)
[2023-12-17 07:47] LABS: Bedside Glucose 121 mg/dL (74-106)
--- NOTE | 2023-12-17 08:30 | COLBX_PTH ---
PATIENT: WILMER BARAJAS Jr. LOC: EN U#:[id number] AGE/SX: 73/M ROOM: RE12/17/[address]: Dr. Chester Martinez DO : 1950 BED: DIS: 12/17/2023 SPEC #: [id number] RECD: 12/17/23 10:50 STATUS: ANKUSH YUNIER #: [id number] KEITH: 12/17/23 08:[address]: Chester Martinez DEPT: SURGICAL PATHOLOGY RECD BY: Elsy Padilla ENTERED: 12/17/23 11:19 SP TYPE: COLON BX OTHR DR: Dr. Michael Cannon MD Tissues: A - COLON BIOPSY B - Sigmoid colon biopsy C - Rectum, NOS Procedures: Surgery Specimen Level IV HEADER OPERATION: Colonoscopy with polypectomies and biopsies PRE-OP DIAGNOSIS: NAFLD TISSUE SUBMITTED: A- Splenic flexure polyp cold snare, B- Sigmoid polyp cold snare x2, C- Rectal polyps hot snare and biopsy x4 MICROSCOPIC DIAGNOSIS A. Splenic flexure polyp, cold snare polypectomy and biopsy: Fragments of colonic mucosa with focal changes suggestive of tubular adenoma. B. Sigmoid polyp cold snare x2, polypectomy: Fragments of tubular adenoma. C. Rectal polyp cold snare and biopsy x4: Fragments of hyperplastic polyp with focal areas of inflammatory polyp. / 12/18/2023 MICROSCOPIC DESCRIPTION Slides are reviewed. GROSS DESCRIPTION A. Received in fixative is one container labeled with the patient's name and designated Splenic flexure polyp. The specimen consists of multiple irregular fragments of light chavez soft tissue that in aggregate measure 0.8 x 0.5 x 0.1 cm. The specimen is totally submitted in one cassette. B. Received in fixative is one container labeled with the patient's name and designated Sigmoid colon polyp x2. The specimen consists of multiple irregular fragments of light chavez soft tissue that in aggregate measure 2.0 x 0.5 x 0.1 cm. The specimen is totally submitted in one cassette. C. Received in fixative is one container labeled with the patient's name and designated Rectum polyp biopsy. The specimen consists of multiple irregular fragments of light chavez soft tissue that in aggregate measure 2.5 x 0.5 x 0.1 cm. The specimen is totally submitted in one cassette. / 12/17/2023 TC:1 CPT:14523p2
--- NOTE | 2023-12-17 08:37 | PCM.HP.BLA ---
History and Physical Date of Admission: 12/17/23 AFLD Details: WILMER BARAJAS, is a 73 M who presents to the office today for follow up. *BGI established . with persistently elevated LFT and previous diagnosis of fatty liver. Biochemical . CBC, ESR, haptoglobin, coag, CMP, CRP, LDH, AFP, ceruloplasmin, ferritin, copper, AFP, TAYLOR, ammonia, GAME, GURPREET comp, ANCA, ASM, AMA, hepatitis, HIV without pertinent abnormality A1c H5.8 FIB4 2.67 US and elastography 3.. liver measurement 18.1cm with fatty infiltration with stiffness 9.4 kPa; multiple gallstones OV 11.21. Continue ursodiol Vit E. Repeat labs Biochemical 11.21.22 CBC, coag, CMP, ammonia without pertinent abnormality FIB4 2.21 US/elastography 03.14.23 hepatic measurement 19.2cm with fatty infiltration, stiffness 11.3kPa; gallstones; fatty pancreas. OV 03.20.23 feels he is doing well OV .05.17- Pt continues to do well since last visit. Continues Ursodiol with no issues. Denies any abdominal pain, swelling, trouble with bowels. The patient is states his weight at home is 206 and 207. No significant weight changes since last visit in October 2022 12.04.23 Fib-4 2.50 12.04.23- Pt here for follow up. Had labs and CT Triple phase today. Is feeling well since last visit. Is not having any GI concerns at this time. Continues with Ursodiol. ROS Const Constitutional: Positive for weight change; No fatigue or fever(s) ENT ENT: No difficulty swallowing Gastro GI: No abdominal pain, belching, bloating, change in bowel habits, change in stool character, coffee ground emesis, constipation, cramping, diarrhea, heartburn, difficulty swallowing, feeling full early, excessive flatus, incontinent of stools, Vomiting blood/hematemesis, Blood in stool, loose stools, Black,tarry stools, nausea/dyspepsia, pain with swallowing, vomiting or other Musc Musculoskeletal: Positive for joint swelling; No joint pain Skin Skin: No yellowing of the eye or itchy eyes Psych Psychiatric: No anxiety and No depression Endo Endocrine: Positive for weight change; No fatigue Aller/Imm Allergy/Immunologic: No itchy eyes Santino/Lymp Hematologic/Lymphatic: Positive for easy bruising; No easy bleeding Exam Const General: cooperative, no acute distress and well developed Nutritional Appearance: obese Orientation: alert, awake and oriented x3 [facility] Head: normocephalic and atraumatic Nose: external nose normal Face and sinus: normal facial exam Mouth: moist mucous membranes Eyes Pupils: PERRL EOM: EOM intact bilaterally Neck Neck: normal visual inspection, no meningeal signs and trachea midline Carotids: no bruits Chest Chest palpation & inspection: normal inspection of the chest Resp Effort & Inspection: normal respiratory effort and symmetric chest movement Auscultation: Bilateral: Clear to Auscultation Cardio Palpation: normal PMI Rate: regular rate Rhythm: regular rhythm Heart Sounds: S1 normal and S2 normal GI Auscultation: normal bowel sounds Percussion: normal to percussion Palpation: soft, no hepatosplenomegaly and no guarding Other: Ventral hernia, reducible. No palpable ascites. Liver not enlarged. Spleen not palpable. General: bimanual renal exam normal bilaterally, bladder normal to inspection and bladder normal to palpation Musc Musculoskeletal: No joint tenderness, joint redness, joint warmth or decreased range of motion Thoracic/Lumbar Spine: thor and lumb spine abnorm to inspection Skin General: rashes and/or lesions noted, turgor normal and no erythema Wounds: wound noted Neuro General: patient alert, patient awake, patient oriented x3 and no focal motor deficits Speech: speech normal Motor: muscle tone normal throughout Extrem General: normal exam except as noted Other: No pedal edema Psych Appearance: grossly normal Mood: congruent mood Affect: normal affect Attitude: cooperative Assessment and Plan Assessment and Plan (1) NAFLD (nonalcoholic fatty liver disease): Status: Chronic Plan: Patient lost 5 pounds since last visit in May 2023. He stated that he had not low A1c and glucose and was taken off pioglitazone. He still takes Januvia. He is not taking metformin as in the past and gave him diarrhea. His fib 4 score is 2.5, suggestive of possible Farooq 2-3 fibrosis score. Apri score is 0.4. Last elastography reviewed. Liver stiffness measures 11.3 kPa compatible with F2-F3 (Mild to moderate liver fibrosis) Metavir score. No liver mass. Multiple gallstones but no acute features of cholecystitis. GB wall 2.8 mm. CBD 2.5 mm. Again fatty liver with liver enlarged 19.2 cm. Patient just had triple phase CT scan, report is pending. Images reviewed does not seem any noticeable mass. Colitis Currently patient takes Januvia 100 mg daily. Advised to take metformin 500 mg once daily. She has no fever Januvia and metformin does not have directed hypoglycemic side effect. aFP normal Continue vitamin E and ursodiol Labs ordered before next visit 6 months. (2) Obesity (BMI 30.0-34.9): Status: Chronic Orders: Orders CBC W/Diff, Automated 6 Months E66.9 - Obesity, unspecified, K76.0 - Fatty (change of) liver, not elsewhere classified Comprehensive Metabolic Profil 6 Months E66.9 - Obesity, unspecified, K76.0 - Fatty (change of) liver, not elsewhere classified Lipid Profile 6 Months E66.9 - Obesity, unspecified, E78.5 - Hyperlipidemia, unspecified, K76.0 - Fatty (change of) liver, not elsewhere classified Hemoglobin A1c 6 Months E11.9 - Type 2 diabetes mellitus without complications, E66.9 - Obesity, unspecified, K76.0 - Fatty (change of) liver, not elsewhere classified CRP 6 Months E66.9 - Obesity, unspecified, K76.0 - Fatty (change of) liver, not elsewhere classified Prothrombin Time w/INR 6 Months E66.9 - Obesity, unspecified, K76.0 - Fatty (change of) liver, not elsewhere classified Medications: Discontinued pioglitazone (Actos) Discontinued Reason: Discontinued by PCP/other physicians 45 mg PO DAILY I have examined the patient and the H&P has been reviewed. There are no clinical changes since date of exam.
--- NOTE | 2023-12-17 09:19 | PCM.POST.ANE ---
Anesthesia: Postop Eval I Current Vital Signs Temperature: 97.7 F Pulse Rate: 62 Blood Pressure: 120/65 Respiratory Rate: 16 Pulse Ox: 97 Oxygen Delivery Method: Room Air Assessment Airway patent: Yes Spontaneous unlabored respirations: Yes Mental status: Awake and Calm nausea: No Vomiting: No Anesthesia Complication: No Fluid Hydration Crystalloid volume administer (ml): 800 Total IV fluid infused: 800 Progress Note Anesthesia document: Postop Eval 1 completed: Yes
--- NOTE | 2023-12-17 09:25 | OP.CCLET_ITS ---
12/17/2023 Michael Cannon MD Re : Colonoscopy procedure for Tony Morel Dear Dr. Cannon This procedure was performed on Sunday, December 17, 2023. My impressions and recommendations are as follows: Impressions : - Diverticulosis in the recto-sigmoid colon and in the sigmoid colon. - Four 1 to 2 mm polyps in the rectum, removed with a jumbo cold forceps. Resected and retrieved. - Two 1 to 2 mm polyps at the recto-sigmoid colon, removed with a hot snare. Resected and retrieved. - Two 1 to 2 mm polyps at the splenic flexure, removed with a cold snare. Resected and retrieved. - Medium-sized lipoma at the hepatic flexure and in the ascending colon. - The examination was otherwise normal on direct and retroflexion views. - Rectal varices. Recommendations : - Discharge patient to home. - Resume previous diet. - Continue present medications. - Await pathology results. - Repeat colonoscopy in 3 years for surveillance. My findings are described in the full procedure note, which is enclosed. If I can be of further assistance, please feel free to contact me at . Sincerely, Chester Martinez, 12/17/2023 9:24:31 AM This report has been signed electronically.
--- NOTE | 2023-12-17 09:25 | OP.COLON_ITS ---
Patient Name: Tony Morel Procedure Date: 12/17/2023 8:36 AM Date of : 1950 Age: 73 Procedure: Colonoscopy Indications: Screening for colorectal malignant neoplasm Providers: Chester Martinez DO Medicines: Monitored Anesthesia Care Patient Profile: This is a 73 year old male. Refer to note in patient chart for documentation of history and physical. Last Colonoscopy: date unknown. Unable to locate last colonoscopy report. Complications: No immediate complications. Procedure: Pre-Anesthesia Assessment: - Prior to the procedure, a History and Physical was performed, and patient medications and allergies were reviewed. The patient is competent. The risks and benefits of the procedure and the sedation options and risks were discussed with the patient. All questions were answered and informed consent was obtained. Patient identification and proposed procedure were verified by the physician in the pre-procedure area. Mental Status Examination: alert and oriented. Airway Examination: normal oropharyngeal airway and neck mobility. Respiratory Examination: clear to auscultation. CV Examination: normal. Prophylactic Antibiotics: The patient does not require prophylactic antibiotics. Prior Anticoagulants: The patient has taken no anticoagulant or antiplatelet agents. ASA Grade Assessment: III - A patient with severe systemic disease. After reviewing the risks and benefits, the patient was deemed in satisfactory condition to undergo the procedure. The anesthesia plan was to use monitored anesthesia care (MAC). Immediately prior to administration of medications, the patient was re-assessed for adequacy to receive sedatives. The heart rate, respiratory rate, oxygen saturations, blood pressure, adequacy of pulmonary ventilation, and response to care were monitored throughout the procedure. The physical status of the patient was re-assessed after the procedure. After I obtained informed consent, the scope was passed under direct vision. Throughout the procedure, the patient's blood pressure, pulse, and oxygen saturations were monitored continuously. The Colonoscope was introduced through the anus and advanced to the cecum, identified by appendiceal orifice and ileocecal valve. The colonoscopy was performed without difficulty. The patient tolerated the procedure well. The quality of the bowel preparation was adequate. The ileocecal valve, appendiceal orifice, and rectum were photographed. Moderate Sedation: Moderate (conscious) sedation was personally administered by an anesthesia professional. The following parameters were monitored: oxygen saturation, heart rate, blood pressure, respiratory rate, EKG, adequacy of pulmonary ventilation, and response to care. Scope In: 8:48:28 AM Scope Withdrawal Time 0 hours 21 minutes 42 seconds Scope Out: 9:13:33 AM Total Procedure Duration Time 0 hours 25 minutes 5 seconds Findings: The perianal and digital rectal examinations were normal. A few small and large-mouthed diverticula were found in the recto-sigmoid colon and sigmoid colon. Four sessile polyps were found in the rectum. The polyps were 1 to 2 mm in size. These polyps were removed with a jumbo cold forceps. Resection and retrieval were complete. Verification of patient identification for the specimen was done. Estimated blood loss was minimal. Two sessile polyps were found in the recto-sigmoid colon. The polyps were 1 to 2 mm in size. These polyps were removed with a hot snare. Resection and retrieval were complete. Verification of patient identification for the specimen was done. Estimated blood loss was minimal. Two sessile polyps were found in the splenic flexure. The polyps were 1 to 2 mm in size. These polyps were removed with a cold snare. Resection and retrieval were complete. Verification of patient identification for the specimen was done. Estimated blood loss was minimal. There was a medium-sized lipoma, at the hepatic flexure and in the ascending colon. The exam was otherwise without abnormality on direct and retroflexion views. 9 mm, non-bleeding rectal varices were found. Impression: - Diverticulosis in the recto-sigmoid colon and in the sigmoid colon. - Four 1 to 2 mm polyps in the rectum, removed with a jumbo cold forceps. Resected and retrieved. - Two 1 to 2 mm polyps at the recto-sigmoid colon, removed with a hot snare. Resected and retrieved. - Two 1 to 2 mm polyps at the splenic flexure, removed with a cold snare. Resected and retrieved. - Medium-sized lipoma at the hepatic flexure and in the ascending colon. - The examination was otherwise normal on direct and retroflexion views. - Rectal varices. Recommendation: - Discharge patient to home. - Resume previous diet. - Continue present medications. - Await pathology results. - Repeat colonoscopy in 3 years for surveillance. Procedure Code(s): --- Professional --- 66194, Colonoscopy, flexible; with removal of tumor(s), polyp(s), or other lesion(s) by snare technique 47927, 59, Colonoscopy, flexible; with biopsy, single or multiple CPT copyright 2021 [employer]. All rights reserved. The codes documented in this report are preliminary and upon neck pinner review may be revised to meet current compliance requirements. Chester Martinez DO 12/17/2023 9:24:31 AM This report has been signed electronically. Number of Addenda: 0 Note Initiated On: 12/17/2023 8:36 AM
--- NOTE | 2023-12-17 13:13 | PCM.POSTANE2 ---
Anesthesia Postop Eval I Sum Postop Eval Completion status Anesthesia document: Postop Eval 1 completed: Yes Anesthesia Postop Eval I Summary Anesthesia Postop Eval I Summary: Anesthesia Postop Eval I: Assessment Summary Airway patent Yes 12/17/23 09:24 [email or web address] Spontaneous unlabored Yes 12/17/23 09:24 [email or web address] respirations Mental status Awake,Calm 12/17/23 09:24 [email or web address] nausea No 12/17/23 09:24 [email or web address] Vomiting No 12/17/23 09:24 [email or web address] Anesthesia Postop Eval I: Fluid Summary Crystalloid volume administer 800 12/17/23 09:24 [email or web address] (ml) Colloids volume administered ( ml) Blood Product volume administered (ml) Total IV fluid infused 800 12/17/23 09:24 [email or web address] Anesthesia Postop Eval I: Summary Notes Anesthesia Complication No 12/17/23 09:24 [email or web address] Anesthesia Complication Comment: Post-operative progress note Anesthesia: Postop Eval II Evaluation Mental status: Awake and Calm Pain Level: 0 nausea: No Vomiting: No Complications Anesthesia Complication: No
== END 2023-12-17 09:55 | disposition home or self-care (01) ==
LOC: EN 06:46 → AC 06:48
PROVIDERS: PCP Family Medicine; Referring Provider Family Medicine; Visit Provider Internal Medicine Gastroenterology
PROC: 0DJD8ZZ Inspection of Lower Intestinal Tract, Via Natural or Artificial Opening Endoscopic (ICD-10-PCS; CPT 45378; principal; 2023-12-17 08:25)
DX: Z12.11 Encounter for screening for malignant neoplasm of colon (principal); J44.9 Chronic obstructive pulmonary disease, unspecified; E11.9 Type 2 diabetes mellitus without complications; K76.0 Fatty (change of) liver, not elsewhere classified; K62.1 Rectal polyp; K57.30 Diverticulosis of large intestine without perforation or abscess without bleeding; E66.9 Obesity, unspecified; D17.5 Benign lipomatous neoplasm of intra-abdominal organs; D12.3 Benign neoplasm of transverse colon; D12.5 Benign neoplasm of sigmoid colon; Z79.899 Other long term (current) drug therapy; Z79.82 Long term (current) use of aspirin; K21.9 Gastro-esophageal reflux disease without esophagitis; E78.00 Pure hypercholesterolemia, unspecified; I10 Essential (primary) hypertension; Z86.010 Personal history of colon polyps; Z87.19 Personal history of other diseases of the digestive system; Z79.84 Long term (current) use of oral hypoglycemic drugs
CPT/HCPCS: 45380; 45385; 82962; 88305; J7120; J2405

== ENCOUNTER 2024-03-01 20:43 | Emergency (ER) | payer MEDICARE, MEDICAID, SELFPAY ==
[2024-03-01 20:44] VITALS: BP 170/85; PULSE 73; RESP 18; TEMP 35.8; O2SAT 100; BMI 29.5
--- NOTE | 2024-03-01 20:53 | CT_ITS ---
STUDY: CT ABDOMEN AND PELVIS WITH CONTRAST REASON FOR EXAM: Male, 73 years old. PAIN RADIATION DOSAGE (If Supplied By Facility): CTDIvol = ( 19.29 ) mGy, DLP = ( 1174.06 ) mGycm TECHNIQUE: Transaxial images were obtained from the dome of the diaphragm to the symphysis pubis without oral contrast. IV 100mL Isovue-370 was administered. Sagittal and coronal images were reconstructed. Individualized dose optimization techniques were used for this CT. COMPARISON: December 04, 2023. FINDINGS: The visualized lung bases are unremarkable. The visualized portions of the heart are within normal limits. Liver appears mildly enlarged and there appear to be mild cirrhotic changes. There is no mass or bile duct dilatation. Tiny calcified gallstones without pericholecystic edema.. Normal spleen. Normal pancreas. Tiny nonspecific nodule in the right adrenal measuring 9.5 x 11.7 mm. Normal left adrenal. No evidence for renal obstruction. There is a simple cyst in the right renal cortex which will not require additional imaging. There is a benign lipomatous density in the left kidney. Concentric thickening of the [place] of stomach which may be consistent with nonspecific gastritis. Normal small intestine. Minor diverticular changes of the distal descending colon without evidence for acute diverticulitis. The appendix is visualized and appears normal. Mild atherosclerotic change of the aorta without evidence for aneurysm. Normal inferior vena cava. Normal retroperitoneum. Normal urinary bladder. Nonspecific enlargement of the prostate. Small bilateral fat-containing inguinal hernias. Lumbar spine demonstrates degenerative change Degenerative changes of the sacroiliac joints CT/Abdomen/Pelvis W IV Cont ONLY IMPRESSION: Cholelithiasis without definitive evidence for acute cholecystitis.. This may be further assessed with ultrasound or HIDA scan if indicated. Findings which may be consistent with nonspecific gastritis. Minor diverticular changes of the colon without evidence for acute diverticulitis Electronically Signed: Michael Riley MD at 22:05 EDT ,
--- NOTE | 2024-03-01 20:54 | EDS_ITS ---
HPI History of Present Illness Chief Complaint: Abd Pain Narrative Narrative: 73-year-old male past medical history of hyperlipidemia, diabetes, presents with his because of sudden onset of epigastric pain that began about an hour ago. He has last eaten at 3 PM, 6 hours ago. He denies any nausea or vomiting, but describes the pain as a chest hurting. No exacerbating or alleviating factors. States he has not had any problems with bowel movements but usually goes every day and awakens with diarrhea, but has not had a bowel movement today. No prior abdominal surgeries. She denies any chest pain, no back pain, no dysuria, no hematuria. [facility] Medical History Encounter for screening colonoscopy HLD (hyperlipidemia) History of colon polyps Osteoarthritis Elevated PSA BPH (benign prostatic hyperplasia) Barretts esophagus Asthma with COPD Altered bowel habits Elevated alkaline phosphatase level VARGAS (nonalcoholic steatohepatitis) Smokeless tobacco use Wears glasses Arthritis High cholesterol Gastric reflux Smoker Type 2 diabetes mellitus Hypertension Home Medications ?Medication ?Instructions ?Recorded ?Last Taken ?Type amlodipine 10 mg tablet 10 mg PO DAILY 07/13/21 12/17/23 History aspirin 81 mg capsule 81 mg PO DAILY 07/13/21 07/11/21 History atorvastatin 40 mg tablet 40 mg PO QHS 07/13/21 07/18/21 History lisinopril 40 mg tablet 40 mg PO DAILY 07/13/21 07/18/21 History magnesium oxide 500 mg PO BID 07/13/21 07/18/21 History omeprazole 40 mg capsule,delayed 40 mg PO DAILY 07/13/21 07/18/21 History release albuterol sulfate 90 mcg/actuation 1 inh inhalation PRN 05/12/22 Unknown History aerosol inhaler (Ventolin HFA) omega-3 fatty acids 500 mg PO DAILY 12/11/23 Unknown History pioglitazone 30 mg tablet 30 mg PO DAILY 12/11/23 Unknown History vitamin E 268 mg (400 unit) capsule 268 mg PO BID 12/11/23 Unknown History ursodiol 250 mg tablet See Rx Instructions .Route 01/23/24 Unknown Rx .COMPLEX #60 tabs omeprazole 40 mg capsule,delayed 40 mg PO BID #60 caps 03/01/24 Unknown Rx release Allergy/AdvReac Type Severity Reaction Status Date / Time No Known Allergies Allergy Verified 12/17/23 07:36 Family History Father Hypertension HLD (hyperlipidemia) Diabetes TIA (transient ischemic attack) Ischemic heart disease Mother Osteoarthritis Uterine cancer Surgical History Hx of surgical procedure History of tonsillectomy Hx of colonoscopy Social History Smoking Status: Current every day smoker tobacco type: cigarettes and smokeless tobacco ROS ROS ED ROS Narrative Constitutional: No fever, no chills. HEENT: No sore throat. No neck pain. No loss of vision. No rhinorrhea. Cardiovascular: No chest pain. No palpitations. No pedal edema. Respiratory: No cough, no shortness of breath. Abdominal: Positive epigastric abdominal pain. No nausea. No vomiting. No bowel movement today. Genitourinary: No dysuria. No hematuria. Musculoskeletal: No myalgias. No arthralgias. Neurologic: No headaches. No dizziness. No lightheadedness. Skin: No rash. No change in color. Psychiatric: No depression. No anxiety. EXAM Physical Exam Narrative Exam Narrative: Afebrile. Vital signs noted. HEENT: Normocephalic. Atraumatic. PERRL, EOMI. Neck soft and supple. No point tenderness or step off. Cardiovascular: Regular rate and rhythm. No murmurs, rubs, or gallops appreciated. Respiratory: No tachypnea. Lungs clear to auscultation bilaterally. Gastrointestinal: Abdomen soft, mild tenderness to palpation in the epigastrium with normoactive bowel sounds. No rebound or guarding. Negative Jacob sign. Neurological: Awake. Alert. Nonfocal, nonlateralizing. Skin: No rash. Normal color. No pallor. Musculoskeletal: No pedal edema. Full range of motion extremities. Const Vital Signs: 03/01/24 20:44 03/01/24 22:43 03/01/24 22:51 Temperature 96.4 F L 98 F Temperature Source Temporal Pulse Rate 73 78 78 Respiratory Rate 18 16 Blood Pressure 170/85 H 152/68 H 152/68 H Blood Pressure Mean 113 96 96 Pulse Ox 100 98 98 Oxygen Delivery Method Room Air Room Air MDM MDM MDM Narrative Medical decision making narrative: Differential diagnosis includes but not limited to gastritis versus pancreatitis versus cholecystitis versus colitis. He may also have peptic ulcer disease. Comprehensive workup was pursued. He was administered morphine and ondansetron and a bolus of normal saline. I do feel CT imaging is indicated. I have lower suspicion for ACS. This is because the history and physical does not support this. I reviewed his laboratory work and he has normal white count of 6.3, hemoglobin normal at 16.0, hematocrit 48.1, platelet count normal at 175. Review of his CMP shows chloride slightly elevated at 108 which think is nonspecific, BUN of 14 and normal creatinine 1.14. Glucose is elevated at 173 but he has normal anion gap of 5 so I doubt diabetic ketoacidosis. Urinalysis obtained and reviewed and is negative for infection. I do not feel antibiotics are indicated. While I did obtain a CT of the abdomen and pelvis with IV contrast, I reviewed the radiology report which comments on cholelithiasis but no evidence of cholecystitis. Given that he has normal LFTs, no white count, no fever, I do not feel that he requires ultrasound imaging emergently. Additionally, his lipase is normal so I doubt gallstone pancreatitis. It did comment on gastritis findings. Patient does state that he takes omeprazole 40 mg daily and sees Dr[address] Martinez. He was administered Pepcid orally here and a GI cocktail. Upon repeat examination at approximately 10:50 PM, he states he feels mildly improved. I feel he can be discharged safely home with follow-up and I will increase his omeprazole to 40 mg twice daily and suggest that he follow-up with Dr. Martinez to soon as possible. Return instructions to the emergency department were reviewed. Disposition is discharged home in stable condition. History & Record Review Discussion w/independent historian: Patient Additional record(s) reviewed:: Prior ED visit Lab Data Attestation: I reviewed the patient's lab results. Labs: Laboratory Results - last 24 hr 03/01/24 03/01/24 20:56 21:53 WBC 6.3 RBC 5.45 Hgb 16.0 Hct 48.1 MCV 88.3 MCH 29.4 MCHC 33.3 RDW Std Deviation 43.5 RDW Coeff of Samm 13.7 Plt Count 175 MPV 12.0 Immature Gran % (Auto) 0.300 Neut % (Auto) 67.3 Lymph % (Auto) 21.7 [place] % (Auto) 7.5 Eos % (Auto) 2.2 Baso % (Auto) 1.0 Absolute Neuts (auto) 4.2 Absolute Lymphs (auto) 1.36 Nucleated RBC % 0 Sodium 141 Potassium 3.5 Chloride 108 H Carbon Dioxide 28.0 Anion Gap 5 BUN 14 Creatinine 1.14 Estim Creat Clear Calc 66.23 Est GFR (MDRD) Af Amer 81 Est GFR (MDRD) Non-Af 67 BUN/Creatinine Ratio 12.3 Glucose 173 H Calcium 8.6 Total Bilirubin 0.40 AST 20 ALT 20 Alkaline Phosphatase 129 H Troponin I High Sens 4 Total Protein 7.6 Albumin 3.7 Globulin 3.9 Albumin/Globulin Ratio 0.9 Lipase 36 Urine Color Yellow Urine Clarity Clear Urine pH 6.0 Ur Specific [place] 1.010 Urine Protein Negative Urine Glucose (UA) 50 H Urine Ketones Negative Urine Occult Blood Negative Urine Nitrite Negative Urine Bilirubin Negative Urine Urobilinogen Normal Ur Leukocyte Esterase Negative Urine RBC 0 SEEN Urine WBC 0 SEEN Ur Squamous Epith Cells 0 SEEN Urine Bacteria 0 SEEN Urine Mucus 0 SEEN Radiography Diagnostic Testing: Clinical Impression(s) from Imaging Studies Abdomen/Pelvis CT 03/01/24 20:53 IMPRESSION: Cholelithiasis without definitive evidence for acute cholecystitis.. This may be further assessed with ultrasound or HIDA scan if indicated. Findings which may be consistent with nonspecific gastritis. Minor diverticular changes of the colon without evidence for acute diverticulitis Electronically Signed: Michael Riley MD at 22:05 EDT Reading Location ID and State: [facility] / [place] Tel , Service support , Discharge Plan Triage Chief Complaint: Abd Pain ED Provider: To Charles Dx/Rx/DC Orders Clinical Impression: Gastritis, Cholelithiasis, Abdominal pain Instructions: ED Gastritis (Adult) Prescriptions: New omeprazole 40 mg capsule,delayed release(DR/EC) 40 mg PO BID Qty: 60 0RF No Action albuterol sulfate [Ventolin HFA] 90 mcg/actuation HFA aerosol inhaler 1 inh inhalation PRN atorvastatin 40 mg tablet 40 mg PO QHS omeprazole 40 mg capsule,delayed release(DR/EC) 40 mg PO DAILY amlodipine 10 mg tablet 10 mg PO DAILY lisinopril 40 mg tablet 40 mg PO DAILY magnesium oxide 250 mg magnesium Tablet 500 mg PO BID aspirin 81 mg Capsule 81 mg PO DAILY vitamin E 268 mg (400 unit) capsule 268 mg PO BID omega-3 fatty acids Capsule 500 mg PO DAILY pioglitazone 30 mg tablet 30 mg PO DAILY ursodiol 250 mg tablet See Rx Instructions .ROUTE .COMPLEX Qty: 60 0RF Dose Instruction: Take 1 tablet by mouth twice daily Rx Instructions: Take 1 tablet by mouth twice daily Primary Care Provider: Michael Cannon Referrals: Michael Cannon MD [Primary Care Provider] - Chester Martinez DO [Med Staff - Active Staff] - As soon as possible Activity Restrictions/Additional Instructions: Take your omeprazole 40 mg daily. Follow-up with Dr. Martinez soon as possible. Return with vomiting, increased pain, fever, new or worsening symptoms. Print Language: Mongolian Disposition Disposition: Home, Self Care
--- NOTE | 2024-03-01 20:57 | EKG12_ITS ---
Test Reason : DYSRHYTHMIA Blood Pressure : / mmHG Vent. Rate : 073 BPM Atrial Rate : 073 BPM P-R Int : 164 ms QRS Dur : 082 ms QT Int : 456 ms P-R-T Axes : 043 -09 026 degrees QTc Int : 502 ms Normal sinus rhythm Nonspecific T wave abnormality Prolonged QT Abnormal ECG Confirmed by MIKE ADDISON, BRENDA ([id number]), loan expeditor RIA MOORE ([id number]) on 03/03/2024 6:44:25 AM Referred By: Confirmed By:BRENDA MCKEON MD
[2024-03-01] MEDS: Ondansetron 4 MG/2 ML Vial IV (21:01)
[2024-03-01] MEDS: 0.9% Normal Saline (1000mL) 1,000 ML 999 ML IV (21:01)
[2024-03-01 21:02] LABS: Absolute Lymphocyte Count 1.36 X10^3/uL (0.83-4.51); Absolute Neutrophil Count 4.2 X10^3/uL (2.0-7.7); Basophil# 0.06 X10^3/uL; Eosinophil# 0.14 X10^3/uL; Eosinophils% 2.2 % (0-5); Hematocrit 48.1 % (40-54); Lymphocyte # 1.36 X10^3/ul (0.83-4.51); Lymphocyte % 21.7 % (19-41); Mean Corp Hgb Conc 33.3 g/dL (32-36); Mean Corpuscular Hgb 29.4 pg (27.0-32.0); Mean Corpuscular Volume 88.3 fL (80-94); Monocyte# 0.47 X10^3/uL; Monocyte% 7.5 % (0-10); NRBC Flagged by Analyzer 0 % (0-5); Neutrophil # 4.22 X10^3/uL (2.7-7.7); Neutrophil % 67.3 % (47-70); Platelet Count 175 K/mm3 (150-450); RBC Distribution Width CV 13.7 % (11.6-14.6); RBC Distribution Width SD 43.5 fl (35.1-43.9); Red Blood Count 5.45 M/mm3 (4.6-6.2); White Blood Count 6.3 K/mm3 (4.4-11.0)
[2024-03-01] MEDS: Morphine 4 MG/ML Syringe IV (21:02)
[2024-03-01 21:21] LABS: ALB/GLOB Ratio 0.9 RATIO (0.9-2.4); AST(SGOT) 20 U/L (15-37); Alanine Aminotransfer ALT/SGPT 20 U/L (16-61); Albumin, Serum 3.7 g/dL (3.2-5.0); Alkaline Phosphatase 129 U/L (45-117); Anion Gap 5 (5-15); BUN 14 mg/dL (7-18); BUN/Creat Ratio 12.3 RATIO (10-20); Calcium,Total 8.6 mg/dL (8.5-10.1); Chloride 108 mmol/L (98-107); Creatinine, Serum 1.14 mg/dL (0.70-1.30); EST Glomerular Filtration Rate 67 mL/min (>60); Est Glom Filt Rate - Afr Amer 81 mL/min (>60); Estimated Creatinine Clearance 66.23 ml/min; Globulin 3.9 g/dL (2.2-4.2); Glucose 173 mg/dL (74-106); Lipase 36 U/L (13-75); Potassium 3.5 mmol/L (3.5-5.1); Protein, Total 7.6 g/dL (6.4-8.2); Sodium Level 141 mmol/L (136-145); Troponin-I HS 4 pg/mL (3.0-78.0)
[2024-03-01 22:02] LABS: Bacteria 0 SEEN /hpf (None Seen); Mucous, Urine 0 SEEN /hpf (<or=2+); Red Blood Cells-Urine 0 SEEN /hpf (0-5); Squamous Epithelial Cells - UA 0 SEEN /hpf (0-5); White Blood Cells 0 SEEN /hpf (0-5)
[2024-03-01 22:05] LABS: Color, Urine Yellow (Yellow); Glucose, Dipstick 50 mg/dl (Normal); Ketone-Dipstick Negative (Negative); Leukocyte Esterase-Dipstick Negative /ul (Negative); Nitrite-Dipstick Negative (Negative); Occult Blood-Urine Negative /ul (Negative); Protein-Dipstick Negative (Negative); Urine Bilirubin Dipstick Negative (Negative); Urine Clarity Clear (Clear); Urine Urobilinogen Normal (Normal)
[2024-03-01] MEDS: Lidocaine 2% Viscous15 ML UDC 15 ML PO (22:23)
[2024-03-01] MEDS: Famotidine 20 MG Tablet 40 MG PO (22:23)
[2024-03-01] MEDS: Mag /Aluminum/Simeth WCH UDC 30 ML ORAL.SUSP PO (22:23)
[2024-03-01 22:43] VITALS: BP 152/68; PULSE 78; O2SAT 98
[2024-03-01 22:51] VITALS: BP 152/68; PULSE 78; RESP 16; TEMP 36.6; O2SAT 98
== END 2024-03-01 23:11 | disposition home or self-care (01) ==
PROVIDERS: Emergency Provider Emergency Medicine; PCP Family Medicine; Visit Provider Emergency Medicine
DX: K29.70 Gastritis, unspecified, without bleeding (principal); J44.9 Chronic obstructive pulmonary disease, unspecified; E11.9 Type 2 diabetes mellitus without complications; K80.20 Calculus of gallbladder without cholecystitis without obstruction; F17.210 Nicotine dependence, cigarettes, uncomplicated; F17.220 Nicotine dependence, chewing tobacco, uncomplicated
CPT/HCPCS: 96361; 96374; 96375; 96376; 99283; 74177; 80053; 81001; 83690; 84484; 85025; 93005; J7030; Q9967; J2405

== ENCOUNTER 2024-03-03 11:40 | Inpatient (IN) | payer MEDICARE, MEDICAID, SELFPAY ==
[2024-03-03 11:41] VITALS: BP 169/72; PULSE 77; RESP 16; TEMP 36.8; O2SAT 95; BMI 28.5
[2024-03-03 12:14] LABS: Absolute Lymphocyte Count 0.86 X10^3/uL (0.83-4.51); Absolute Neutrophil Count 9.2 X10^3/uL (2.0-7.7); Basophil# 0.03 X10^3/uL; Basophil% 0.3 % (0-1); Eosinophil# 0.01 X10^3/uL; Eosinophils% 0.1 % (0-5); Hematocrit 48.1 % (40-54); Hemoglobin 16.3 g/dL (13.0-16.5); Lymphocyte # 0.86 X10^3/ul (0.83-4.51); Lymphocyte % 7.7 % (19-41); Mean Corp Hgb Conc 33.9 g/dL (32-36); Mean Corpuscular Hgb 29.6 pg (27.0-32.0); Mean Corpuscular Volume 87.3 fL (80-94); Mean Platelet Vol. 12.2 fl (6.2-12.0); Monocyte# 0.99 X10^3/uL; Monocyte% 8.9 % (0-10); NRBC Flagged by Analyzer 0 % (0-5); Neutrophil % 82.6 % (47-70); Platelet Count 157 K/mm3 (150-450); RBC Distribution Width CV 13.3 % (11.6-14.6); RBC Distribution Width SD 42.4 fl (35.1-43.9); Red Blood Count 5.51 M/mm3 (4.6-6.2); White Blood Count 11.1 K/mm3 (4.4-11.0)
--- NOTE | 2024-03-03 12:30 | EX.ED.DYSGE1 ---
HPI History of Present Illness Chief Complaint: Abd Pain [facility] Medical History Encounter for screening colonoscopy HLD (hyperlipidemia) History of colon polyps Osteoarthritis Elevated PSA BPH (benign prostatic hyperplasia) Barretts esophagus Asthma with COPD Altered bowel habits Elevated alkaline phosphatase level VARGAS (nonalcoholic steatohepatitis) Smokeless tobacco use Wears glasses Arthritis High cholesterol Gastric reflux Smoker Type 2 diabetes mellitus Hypertension Home Medications ?Medication ?Instructions ?Recorded ?Last Taken ?Type amlodipine 10 mg tablet 10 mg PO DAILY 07/13/21 12/17/23 History aspirin 81 mg capsule 81 mg PO DAILY 07/13/21 07/11/21 History atorvastatin 40 mg tablet 40 mg PO QHS 07/13/21 07/18/21 History lisinopril 40 mg tablet 40 mg PO DAILY 07/13/21 07/18/21 History magnesium oxide 500 mg PO BID 07/13/21 07/18/21 History omeprazole 40 mg capsule,delayed 40 mg PO DAILY 07/13/21 07/18/21 History release albuterol sulfate 90 mcg/actuation 1 inh inhalation PRN 05/12/22 Unknown History aerosol inhaler (Ventolin HFA) omega-3 fatty acids 500 mg PO DAILY 12/11/23 Unknown History pioglitazone 30 mg tablet 30 mg PO DAILY 12/11/23 Unknown History vitamin E 268 mg (400 unit) capsule 268 mg PO BID 12/11/23 Unknown History ursodiol 250 mg tablet See Rx Instructions .Route 01/23/24 Unknown Rx .COMPLEX #60 tabs omeprazole 40 mg capsule,delayed 40 mg PO BID #60 caps 03/01/24 Unknown Rx release Allergy/AdvReac Type Severity Reaction Status Date / Time No Known Allergies Allergy Verified 12/17/23 07:36 Family History Father Hypertension HLD (hyperlipidemia) Diabetes TIA (transient ischemic attack) Ischemic heart disease Mother Osteoarthritis Uterine cancer Surgical History Hx of surgical procedure History of tonsillectomy Hx of colonoscopy Social History Smoking Status: Current every day smoker tobacco type: cigarettes and smokeless tobacco EXAM Physical Exam Const Vital Signs: 03/03/24 11:41 03/03/24 13:40 03/03/24 15:00 Temperature 98.2 F Temperature Source Temporal Pulse Rate 77 Respiratory Rate 16 Blood Pressure 169/72 H 163/72 H 174/76 H Blood Pressure Mean 104 102 108 Pulse Ox 95 Oxygen Delivery Method Room Air [facility] [place] Narrative Medical decision making narrative: HISTORY OF PRESENT ILLNESS: 73-year-old male history of hyperlipidemia, type 2 diabetes, hypertension, COPD, Rico's esophagus, VARGAS presents abdominal pain. He notes associated nausea and vomiting. Notes pain is worse with food. Notes he cannot keep anything down. Last bowel movement was this morning. Was nonbloody was not black. Denies bilious nature to his vomitus or hematemesis. Denies chest pain or shortness of breath. REVIEW OF SYSTEMS: Pertinent positives: Abdominal pain, Nausea vomiting Pertinent negatives: Chest pain, shortness breath, melena PHYSICAL EXAM: Nursing triage notes reviewed, Vital signs reviewed Constitutional: please see [facility] HENT: MMM Eyes: Pupils equal round and reactive to light, Extraocular muscles intact Neck: No stridor, no JVD, full neck ROM Lungs: Clear to auscultation, No wheezing or rales. No increased work of breathing, no conversational dyspnea, no accessory muscle use, no nasal flaring. No respiratory distress noted Heart: Regular rate and rhythm, No murmurs, No rubs and No gallops, 2+ distal pulses (radial, femoral, posterior tibial) in all extremities Abdomen: Soft, right upper quadrant TTP, positive Jacob sign but no rigidity, rebound or guarding, no obvious peritoneal signs, no palpable pulsatile abdominal masses, no auscultated abdominal bruit : No CVAT Extremities: No edema Neuro: No focal neurological deficits, cranial nerves II through XII intact, 5/5 strength in all extremities. Intact sensation to light touch in all extremities, 2+ reflexes bilateral patella tendons. Normal gait. No ataxia. Skin: No rash or lesions noted MEDICAL DECISION MAKING: Chief Complaint: Abdominal pain External records reviewed: Reviewed CT scan from 03/01/2024 (2 days prior to arrival) showed cholelithiasis without definitive evidence of acute cholecystitis, possible mild gastritis Factors affecting care: As per HPI Social determinants of health: n history of smokeless tobacco use Consults: General Surgery (Dr. Pires) [facility] Narrative: Patient was initially hemodynamically stable, afebrile and nontoxic-appearing. Exam with right upper quadrant TTP, positive Jacob sign. I considered the following differential diagnosis: Acute cholecystitis, hepatobiliary obstruction, pancreatitis, gastritis, I obtained a broad lab and imaging workup to further elucidate etiology of patient complaint I treat the patient with IV Pepcid, IV morphine, IV Zofran and 500 cc bolus ALL IMAGES (IF OBTAINED) HAVE BEEN PERSONALLY REVIEWED AND INTERPRETED BY MYSELF. CBC with leukocytosis(Increased from 2 days ago) suggestive of systemic inflammation, no anemia or thrombocytopenia Lipase is wnl indicating no pancreatic inflammation. Gallbladder tonsils large and gallbladder wall thickening LFTs with new hyperbilirubinemia, noted elevation alkaline phosphatase concerning for gallbladder pathology I consulted general surgery. General surgery recommended admission and Zosyn. Zosyn was given. Patient was admitted under general surgery service for definitive surgical intervention. The patient and/or family, caregivers express understanding. The patient and/or family, caregivers agrees with the plan. Shared decision making: I will have a discussion with the patient and or visitors regarding risk/benefits of further testing or admission. They will be made aware of of the risk/benefits inherent in this decision they will be given the opportunity to voice understanding. Total critical care time today provided was at least 0 minutes. This excludes separately billable procedures. Critical care time (if documented) is secondary to the patient having high probability of clinically significant/life threatening deterioration in the patient's condition which required my urgent intervention. Impression: 1. Right upper quadrant abdominal pain 2. History of gallstones 3. Leukocytosis 4. Gallbladder sludge 5. Acute hyperbilirubinemia Dispo: Admit This note was generated with Jamglue dictation software. It may contain incorrect words, spelling, and punctuation that were not noted in review of the chart prior to signing. Lab Data Labs: Laboratory Results - last 24 hr 03/03/24 03/03/24 12:00 15:12 WBC 11.1 H RBC 5.51 Hgb 16.3 Hct 48.1 MCV 87.3 MCH 29.6 MCHC 33.9 RDW Std Deviation 42.4 RDW Coeff of Samm 13.3 Plt Count 157 MPV 12.2 H Immature Gran % (Auto) 0.400 Neut % (Auto) 82.6 H Lymph % (Auto) 7.7 L [place] % (Auto) 8.9 Eos % (Auto) 0.1 Baso % (Auto) 0.3 Absolute Neuts (auto) 9.2 H Absolute Lymphs (auto) 0.86 Nucleated RBC % 0 Sodium 138 Potassium 3.5 Chloride 102 Carbon Dioxide 25.0 Anion Gap 11 BUN 9 Creatinine 1.13 Estim Creat Clear Calc 65.80 Est GFR (MDRD) Af Amer 82 Est GFR (MDRD) Non-Af 68 BUN/Creatinine Ratio 8.0 L Glucose 144 H Calcium 9.6 Total Bilirubin 1.70 H Direct Bilirubin 0.47 H AST 11 L ALT 18 Alkaline Phosphatase 138 H Total Protein 7.9 Albumin 3.6 Globulin 4.3 H Albumin/Globulin Ratio 0.8 L Lipase 13 Radiography Diagnostic Testing: Clinical Impression(s) from Imaging Studies Gallbladder Ultrasound 03/03/24 13:14 IMPRESSION: 1. Gallstones and sludge with thickening of the gallbladder wall. Correlation with nuclear medicine biliary scan might be of value to rule out acute cholecystitis. 2. Hepatic steatosis. 3. Right renal cyst. Electronically Signed: Jg Xie MD at 14:54 EDT , Discharge Plan Triage Chief Complaint: Abd Pain ED Provider: Brett [place] Dx/Rx/DC Orders Prescriptions: No Action albuterol sulfate [Ventolin HFA] 90 mcg/actuation HFA aerosol inhaler 1 inh inhalation PRN atorvastatin 40 mg tablet 40 mg PO QHS omeprazole 40 mg capsule,delayed release(DR/EC) 40 mg PO DAILY amlodipine 10 mg tablet 10 mg PO DAILY lisinopril 40 mg tablet 40 mg PO DAILY magnesium oxide 250 mg magnesium Tablet 500 mg PO BID aspirin 81 mg Capsule 81 mg PO DAILY vitamin E 268 mg (400 unit) capsule 268 mg PO BID omega-3 fatty acids Capsule 500 mg PO DAILY pioglitazone 30 mg tablet 30 mg PO DAILY omeprazole 40 mg capsule,delayed release(DR/EC) 40 mg PO BID Qty: 60 0RF ursodiol 250 mg tablet See Rx Instructions .ROUTE .COMPLEX Qty: 60 0RF Dose Instruction: Take 1 tablet by mouth twice daily Rx Instructions: Take 1 tablet by mouth twice daily Primary Care Provider: Michael Cannon Referrals: Michael Cannon MD [Primary Care Provider] - Print Language: Egyptian
[2024-03-03 12:50] LABS: Lipase 13 U/L (13-75)
[2024-03-03] MEDS: 0.9% Normal Saline (500mL Bag) 500 ML 999 ML IV (12:56)
[2024-03-03] MEDS: Ondansetron 4 MG/2 ML Vial IV (12:59)
[2024-03-03] MEDS: Morphine 2 MG/ML Syringe 4 MG IV (13:00)
--- NOTE | 2024-03-03 13:14 | US_ITS ---
INDICATION: Right upper quadrant pain, positive Jacob sign EXAMINATION: Ultrasound US Abdomen Limited (quadrant) TECHNIQUE: Inman scale and color doppler imaging was performed of the right upper quadrant. COMPARISON: CT scan of the abdomen and pelvis of 03/01/2024. FINDINGS: LIVER: There is moderate increased echogenicity. The liver measures about 18 cm in length. The portal vein is patent with normal hepatopedal flow. No focal hepatic lesion. There is no free fluid. GALLBLADDER AND BILIARY TREE: Multiple gallstones and sludge are seen in the gallbladder. Thickening of the gallbladder wall measuring 5.6 mm. The proximal common bile duct measures 5 mm, which is within normal limits for the patient''s age. Sonographic Jacob''s sign: Negative. PANCREAS: The pancreas is obscured by bowel gas and not visualized. Right kidney: The right kidney measures 12.2 cm in length. The renal cortex measures 1.2 cm. There is a 1.9 cm cyst in the right kidney. No evidence of hydronephrosis. US/Gallbladder IMPRESSION: 1. Gallstones and sludge with thickening of the gallbladder wall. Correlation with nuclear medicine biliary scan might be of value to rule out acute cholecystitis. 2. Hepatic steatosis. 3. Right renal cyst. Electronically Signed: Jg Xie MD at 14:54 EDT ,
[2024-03-03] MEDS: Famotidine 200 MG/20 ML MDV 20 MG in 0.9% Normal Saline (Pres. free 8 ML 300 MG IV (13:16)
[2024-03-03 13:40] VITALS: BP 163/72
[2024-03-03 14:42] LABS: ALB/GLOB Ratio 0.8 RATIO (0.9-2.4); AST(SGOT) 11 U/L (15-37); Alanine Aminotransfer ALT/SGPT 18 U/L (16-61); Albumin, Serum 3.6 g/dL (3.2-5.0); Alkaline Phosphatase 138 U/L (45-117); Anion Gap 11 (5-15); BUN 9 mg/dL (7-18); Calcium,Total 9.6 mg/dL (8.5-10.1); Chloride 102 mmol/L (98-107); Creatinine, Serum 1.13 mg/dL (0.70-1.30); EST Glomerular Filtration Rate 68 mL/min (>60); Est Glom Filt Rate - Afr Amer 82 mL/min (>60); Globulin 4.3 g/dL (2.2-4.2); Glucose 144 mg/dL (74-106); Potassium 3.5 mmol/L (3.5-5.1); Protein, Total 7.9 g/dL (6.4-8.2); Sodium Level 138 mmol/L (136-145)
[2024-03-03 15:00] VITALS: BP 174/76
--- NOTE | 2024-03-03 15:22 | HP.PCM_ITS ---
HPI - General General Date of Admission: 03/03/24 Date of Service: 03/03/24 Chief Complaint: Right upper quadrant pain HPI Narrative WILMER BARAJAS, is a 73 M who presents with a 2 day history of right upper quadrant pain. Patient states on Sunday he ate breakfast (eggs, home fries, toast). Approximately 6 hours later he developed epigastric pain, which brought him to the ED. A CT scan was obtained and did not demonstrate acute cholecystitis. Patient was provided with a GI cocktail, which improved his pain along with pain medication and was discharged to home. Patient also had an EKG to rule cardiac concerns. Patient's symptoms were not consistent with cardiac- related disease. Patient was discharged to home. Patient notes he was unable to eat due to lack of appetite. He feels bloated. He notes lack of bowel movement for 3 days, which is not his normal. He notes intermittent nausea. He notes last night he attempted to eat some Jello and instantly became nauseated and vomited. He notes those symptoms were followed by right upper quadrant pain. Patient presented to the ED with these symptoms. Patient notes several years ago he was notified that he had gallstones. He states at that time he was also diagnosed with a fatty liver. He states he follows Dr. Martinez for VARGAS. He denies a cardiac history or being seen by a oceanographer assistant. Patient notes a mild history of COPD, which he has an inhaler for, however he does not recall the last time he had to use the inhaler. He notes taking a daily aspirin. He notes recently having a colonoscopy by Dr. Martinez in November. He had 7 polyps removed at that time. Patient also notes he has had a previous umbilical hernia repair with mesh approximately 10-15 years ago. RUQ u/s was obtained in the ED and demonstrated gallstones and sludge with thickening of the gallbladder wall, hepatic steatosis and right renal cyst. White is slightly elevated with associated left shift. Total bilirubin was elevated at 1.70. [facility] Medical History Encounter for screening colonoscopy HLD (hyperlipidemia) History of colon polyps Osteoarthritis Elevated PSA BPH (benign prostatic hyperplasia) Barretts esophagus Asthma with COPD Altered bowel habits Elevated alkaline phosphatase level VARGAS (nonalcoholic steatohepatitis) Smokeless tobacco use Wears glasses Arthritis High cholesterol Gastric reflux Smoker Type 2 diabetes mellitus Hypertension Home Medications ?Medication ?Instructions ?Recorded ?Last Taken ?Type amlodipine 10 mg tablet 10 mg PO DAILY 07/13/21 12/17/23 History aspirin 81 mg capsule 81 mg PO DAILY 07/13/21 07/11/21 History atorvastatin 40 mg tablet 40 mg PO QHS 07/13/21 07/18/21 History lisinopril 40 mg tablet 40 mg PO DAILY 07/13/21 07/18/21 History magnesium oxide 500 mg PO BID 07/13/21 07/18/21 History omeprazole 40 mg capsule,delayed 40 mg PO DAILY 07/13/21 07/18/21 History release albuterol sulfate 90 mcg/actuation 1 inh inhalation PRN 05/12/22 Unknown History aerosol inhaler (Ventolin HFA) omega-3 fatty acids 500 mg PO DAILY 12/11/23 Unknown History pioglitazone 30 mg tablet 30 mg PO DAILY 12/11/23 Unknown History vitamin E 268 mg (400 unit) capsule 268 mg PO BID 12/11/23 Unknown History ursodiol 250 mg tablet See Rx Instructions .Route 01/23/24 Unknown Rx .COMPLEX #60 tabs omeprazole 40 mg capsule,delayed 40 mg PO BID #60 caps 03/01/24 Unknown Rx release Allergy/AdvReac Type Severity Reaction Status Date / Time No Known Allergies Allergy Verified 12/17/23 07:36 Family History Father Hypertension HLD (hyperlipidemia) Diabetes TIA (transient ischemic attack) Ischemic heart disease Mother Osteoarthritis Uterine cancer Surgical History Hx of surgical procedure History of tonsillectomy Hx of colonoscopy Social History Smoking Status: Current every day smoker tobacco type: cigarettes and smokeless tobacco ROS Constitutional Constitutional: Reports systems reviewed and no addt'l complaints, except as documented Eyes Eyes: Reports systems reviewed and no addt'l complaints, except as documented ENT HEENT: Reports systems reviewed and no addt'l complaints, except as documented Cardiovascular Cardiovascular: Reports systems reviewed and no addt'l complaints, except as documented Respiratory/Chest Respiratory/Chest: Reports systems reviewed and no addt'l complaints, except as documented Gastrointestinal Gastrointestinal: Reports systems reviewed and no addt'l complaints, except as documented Genitourinary Genitourinary: Reports systems reviewed and no addt'l complaints, except as documented Musculoskeletal Musculoskeletal: Reports systems reviewed and no addt'l complaints, except as documented Integumentary Integumentary: Reports systems reviewed and no addt'l complaints, except as documented Neurologic Neurologic: Reports systems reviewed and no addt'l complaints, except as documented Psychiatric Psychiatric: Reports systems reviewed and no addt'l complaints, except as documented Endocrine Endocrinology: Reports systems reviewed and no addt'l complaints, except as documented Hematologic/Lymphatic Hematologic/Lymphatic: Reports systems reviewed and no addt'l complaints, except as documented Allergic/Immunologic Allergic/Immunologic: Reports systems reviewed and no addt'l complaints, except as documented Vital Signs Vital Signs Vital Signs: 03/03/24 11:41 03/03/24 13:40 03/03/24 15:00 Temperature 98.2 F Temperature Source Temporal Pulse Rate 77 Respiratory Rate 16 Blood Pressure 169/72 H 163/72 H 174/76 H Blood Pressure Mean 104 102 108 Pulse Ox 95 Oxygen Delivery Method Room Air Weight Weight: 199 lb Body Mass Index (BMI) 28.5 Physical Exam Const alert, oriented x3 and no apparent distress HEENT normocephalic and head/scalp atraumatic Eyes PERRL Neck full ROM Lymph Lymphatic: no lymphadenopathy noted Resp normal respiratory effort and clear to auscultation bilaterally Cardio regular rate and regular rhythm GI GI Narrative: Abdomen- right upper quadrant pain with palpation. Hypoactive bowel sounds. Distended abdomen. Positive Jacob's sign. no CVA tenderness Back/Spine no CVA tenderness Extremity normal to inspection Skin no rashes or lesions noted Neuro no focal motor deficits and no sensory deficits noted Psych mental status grossly normal, thought process normal and cooperative Results Lab / Micro Data 03/03/24 12:00 03/03/24 12:00 Labs: Laboratory Results - last 24 hr 03/03/24 12:00: WBC 11.1 H, RBC 5.51, Hgb 16.3, Hct 48.1, MCV 87.3, MCH 29.6, MCHC 33.9, RDW Std Deviation 42.4, RDW Coeff of Samm 13.3, Plt Count 157, MPV 12.2 H, Immature Gran % (Auto) 0.400, Neut % (Auto) 82.6 H, Lymph % (Auto) 7.7 L , [place] % (Auto) 8.9, Eos % (Auto) 0.1, Baso % (Auto) 0.3, Absolute Neuts (auto) 9.2 H, Absolute Lymphs (auto) 0.86, Nucleated RBC % 0, Sodium 138, Potassium 3.5, Chloride 102, Carbon Dioxide 25.0, Anion Gap 11, BUN 9, Creatinine 1.13, Estim Creat Clear Calc 65.80, Est GFR (MDRD) Af Amer 82, Est GFR (MDRD) Non-Af 68, BUN/Creatinine Ratio 8.0 L, Glucose 144 H, Calcium 9.6, Total Bilirubin 1.70 H, AST 11 L, ALT 18, Alkaline Phosphatase 138 H, Total Protein 7.9, Albumin 3.6, Globulin 4.3 H, Albumin/Globulin Ratio 0.8 L, Lipase 13 Imaging Radiology Impression Gallbladder Ultrasound 03/03/24 13:14 IMPRESSION: 1. Gallstones and sludge with thickening of the gallbladder wall. Correlation with nuclear medicine biliary scan might be of value to rule out acute cholecystitis. 2. Hepatic steatosis. 3. Right renal cyst. Electronically Signed: Jg Xie MD at 14:54 EDT , Assessment & Plan Assessment/Plan (1) Acute cholecystitis: PLAN: I have been consulted in conjunction with Dr. Pires. She will independently evaluate this patient. Patient has been to the ED twice within the last 3 days with similar right upper quadrant/epigastric symptoms. Patient is no having nausea and vomiting along with lack of appetite secondary to the right upper quadrant pain. Patient's RUQ u/s is demonstrating gallbladder wall thickening with cholelithiasis. Patient now has a white count with a left shift and an elevated total bilirubin. We will plan to admit the patient for pain control, IV hydration, antibiotic and surgical intervention. Dr. Pires will plan to perform a laparoscopic cholecystectomy with intraoperative cholangiogram. Procedure details, risks and benefits have been explained. Patient and his family have had the opportunity to ask and have questions answered. Plan for clear liquids and PPI during admission. Patient verbally understands and agrees with the plan. Patient is aware that if an obstruction is noted during cholangiogram, patient may need an additional procedure called an ERCP to have the stones extracted and a temporary stent placed. Thank you for allowing us to participate in this patient's care. Charges/Coding Visit Charges OBSV E&M: 23936 Observ/hosp same date L2
[2024-03-03 15:34] LABS: Bilirubin, Direct 0.47 mg/dL (0.00-0.30)
[2024-03-03] MEDS: Piperacil/Tazobactam 3.375 GM in 0.9% Normal Saline (50mL MB+) 50 ML IV ×2 (16:23→21:03)
[2024-03-03 16:43] VITALS: BP 170/81; PULSE 88; RESP 18; TEMP 36.9; O2SAT 96
[2024-03-03 17:24] VITALS: BP 146/54; PULSE 71; RESP 18; TEMP 36.7; O2SAT 96
[2024-03-03 17:26] VITALS: BMI 29.3
[2024-03-03] MEDS: 0.9% Normal Saline (1000mL) 1,000 ML 100 ML IV (17:49)
[2024-03-03] MEDS: Pantoprazole Sodium 40 MG in 0.9% Normal Saline (100mL MB+) 100 ML 330 MG IV (18:40)
[2024-03-03] MEDS: Lisinopril 40 MG Tablet PO (18:42)
[2024-03-03] MEDS: amLODIPine 10 MG Tablet PO (18:42)
[2024-03-03 20:57] VITALS: BP 145/49; PULSE 77; RESP 18; TEMP 37.2; O2SAT 95
[2024-03-03] MEDS: Acetaminophen 325 MG Tablet 650 MG PO (21:03)
[2024-03-03] MEDS: oxyCODONE 5 MG Tablet PO (21:03)
[2024-03-03] MEDS: Atorvastatin Calcium 40 MG Tablet PO (21:03)
--- NOTE | 2024-03-03 22:47 | EKG12_ITS ---
Test Reason : AM EKG Blood Pressure : / mmHG Vent. Rate : 074 BPM Atrial Rate : 074 BPM P-R Int : 154 ms QRS Dur : 078 ms QT Int : 410 ms P-R-T Axes : 054 006 031 degrees QTc Int : 455 ms Normal sinus rhythm Nonspecific T wave abnormality Abnormal ECG When compared with ECG of 01-MAR-2024 21:03, No significant change was found Confirmed by MIKE ADDISON, BRENDA ([id number]), commissioning editor FRITZ CORRALES ([id number]) on 03/04/2024 7:48:58 AM Referred By: JULIANNE Confirmed By:BRENDA MCKEON MD
[2024-03-04] VITALS (15 sets, daily range): BP systolic 112–167; BP diastolic 49–96; PULSE 64–95; RESP 16–19; TEMP 36.6–37.5; O2SAT 90–97; BMI 29.6
[2024-03-04] MEDS: Acetaminophen 325 MG Tablet 650 MG PO (04:06)
[2024-03-04] MEDS: oxyCODONE 5 MG Tablet PO ×2 (04:06→20:50)
[2024-03-04] MEDS: Piperacil/Tazobactam 3.375 GM in 0.9% Normal Saline (50mL MB+) 50 ML IV ×3 (05:37→20:50)
[2024-03-04 07:21] LABS: Absolute Lymphocyte Count 1.07 X10^3/uL (0.83-4.51); Absolute Neutrophil Count 8.4 X10^3/uL (2.0-7.7); Basophil# 0.04 X10^3/uL; Basophil% 0.4 % (0-1); Eosinophil# 0.03 X10^3/uL; Eosinophils% 0.3 % (0-5); Hematocrit 40.4 % (40-54); Hemoglobin 13.5 g/dL (13.0-16.5); Lymphocyte # 1.07 X10^3/ul (0.83-4.51); Lymphocyte % 10.1 % (19-41); Mean Corp Hgb Conc 33.4 g/dL (32-36); Mean Corpuscular Hgb 29.6 pg (27.0-32.0); Mean Corpuscular Volume 88.6 fL (80-94); Mean Platelet Vol. 12.3 fl (6.2-12.0); Monocyte# 1.02 X10^3/uL; Monocyte% 9.6 % (0-10); NRBC Flagged by Analyzer 0 % (0-5); Neutrophil # 8.38 X10^3/uL (2.7-7.7); Neutrophil % 78.9 % (47-70); Platelet Count 134 K/mm3 (150-450); RBC Distribution Width CV 13.4 % (11.6-14.6); RBC Distribution Width SD 43.6 fl (35.1-43.9); Red Blood Count 4.56 M/mm3 (4.6-6.2); White Blood Count 10.6 K/mm3 (4.4-11.0)
--- NOTE | 2024-03-04 07:34 | PCM.PN.SRG ---
Subjective Subjective Patient evaluated resting comfortably in bed. He denies any abdominal pain currently. He noted having abdominal pain over night which he was medicated for and tolerated well. Objective Data Objective Data Vital Signs: Vital Signs Temp Pulse Resp BP Pulse Ox O2 Del Method 99.5 F H 74 18 134/61 H 94 Room Air 03/04/24 04:02 03/04/24 04:02 03/04/24 04:02 03/04/24 04:02 03/04/24 04:02 03/04/24 04:02 Oxygen Delivery Method Room Air Weight: 204 lb 5.896 oz Body Mass Index (BMI) 29.3 Intake & Output: Intake and Output for Last 24 Hours 03/02/24 03/03/24 03/04/24 23:59 23:59 23:59 Intake Total 926.67 / 926.67 508.33 / 508.33 Balance 926.67 / 926.67 508.33 / 508.33 Lab / Micro Data 03/04/24 06:56 03/03/24 12:00 Labs: Laboratory Results - last 24 hr 03/03/24 12:00: WBC 11.1 H, RBC 5.51, Hgb 16.3, Hct 48.1, MCV 87.3, MCH 29.6, MCHC 33.9, RDW Std Deviation 42.4, RDW Coeff of Samm 13.3, Plt Count 157, MPV 12.2 H, Immature Gran % (Auto) 0.400, Neut % (Auto) 82.6 H, Lymph % (Auto) 7.7 L, [place] % (Auto) 8.9, Eos % (Auto) 0.1, Baso % (Auto) 0.3, Absolute Neuts (auto) 9.2 H, Absolute Lymphs (auto) 0.86, Nucleated RBC % 0, Sodium 138, Potassium 3.5, Chloride 102, Carbon Dioxide 25.0, Anion Gap 11, BUN 9, Creatinine 1.13, Estim Creat Clear Calc 65.80, Est GFR (MDRD) Af Amer 82, Est GFR (MDRD) Non-Af 68, BUN/Creatinine Ratio 8.0 L, Glucose 144 H, Calcium 9.6, Total Bilirubin 1.70 H, AST 11 L, ALT 18, Alkaline Phosphatase 138 H, Total Protein 7.9, Albumin 3.6, Globulin 4.3 H, Albumin/Globulin Ratio 0.8 L, Lipase 13 03/03/24 15:12: Direct Bilirubin 0.47 H 03/04/24 06:56: WBC 10.6, RBC 4.56 L, Hgb 13.5, Hct 40.4, MCV 88.6, MCH 29.6, MCHC 33.4, RDW Std Deviation 43.6, RDW Coeff of Samm 13.4, Plt Count 134 L, MPV 12.3 H, Immature Gran % (Auto) 0.700, Neut % (Auto) 78.9 H, Lymph % (Auto) 10.1 L, [place] % (Auto) 9.6, Eos % (Auto) 0.3, Baso % (Auto) 0.4, Absolute Neuts (auto) 8.4 H, Absolute Lymphs (auto) 1.07, Nucleated RBC % 0 Radiography Diagnostic Testing: Radiology Impression Gallbladder Ultrasound 03/03/24 13:14 IMPRESSION: 1. Gallstones and sludge with thickening of the gallbladder wall. Correlation with nuclear medicine biliary scan might be of value to rule out acute cholecystitis. 2. Hepatic steatosis. 3. Right renal cyst. Electronically Signed: Jg Xie MD at 14:54 EDT , Physical Exam GI GI Narrative: Abdomen- nontender RUQ Assessment & Plan Assessment/Plan (1) Acute cholecystitis: PLAN: Dr. Pires will plan to perform a laparoscopic cholecystectomy with intraoperative cholangiogram around 12:30 today Continue NPO Continue IV Zosyn Labs reviewed- Total bilirubin slightly decreased We will continue to monitor this patient Charges/Coding Visit Charges Inpatient E&M: 46259 Subs Hosp L1 (no charge; procedure today)
[2024-03-04 08:32] LABS: ALB/GLOB Ratio 0.8 RATIO (0.9-2.4); AST(SGOT) 9 U/L (15-37); Alanine Aminotransfer ALT/SGPT 11 U/L (16-61); Albumin, Serum 2.6 g/dL (3.2-5.0); Alkaline Phosphatase 101 U/L (45-117); Anion Gap 6 (5-15); BUN 14 mg/dL (7-18); BUN/Creat Ratio 12.4 RATIO (10-20); Calcium,Total 8.4 mg/dL (8.5-10.1); Chloride 108 mmol/L (98-107); Creatinine, Serum 1.13 mg/dL (0.70-1.30); EST Glomerular Filtration Rate 68 mL/min (>60); Est Glom Filt Rate - Afr Amer 82 mL/min (>60); Estimated Creatinine Clearance 66.97 ml/min; Globulin 3.4 g/dL (2.2-4.2); Glucose 125 mg/dL (74-106); Potassium 3.1 mmol/L (3.5-5.1); Sodium Level 139 mmol/L (136-145)
[2024-03-04] MEDS: Pantoprazole Sodium 40 MG in 0.9% Normal Saline (100mL MB+) 100 ML 330 MG IV (09:36)
[2024-03-04 09:52] LABS: Hemoglobin A1c 5.7 % (3.8-5.6)
[2024-03-04] MEDS: Potassium Chloride 10mEq/100mL 10 MEQ/100 ML IV.SOLN. 100 MEQ IV BOLUS ×4 (10:01→18:46)
[2024-03-04] MEDS: 0.9% Normal Saline (250mL Bag) 250 ML 15 ML IV (10:03)
--- NOTE | 2024-03-04 11:29 | NURSING ---
Called [facility] and made them aware that the pt still has 2 more bags of IV potassium to run.
--- NOTE | 2024-03-04 11:45 | PCM.PRE.AN2 ---
ASA Classification* ASA Classification ASA Classification: 3 Assessment & Plan Anesthesia* Anesthesia Assessment Anesthesia Assessment: Discussed sedation and/or anesthesia options, risks, benefits, and alternatives with patient/parents/legal guardian/POA. Questions invited. The patient/parents/legal guardian/POA seems to understand and agrees to proceed with anesthesia plan. Reviewed the physical assessment, medical history, allergy history and patient home medications list prior to surgery/procedure/anesthetic and documented any changes. Performed airway and anesthesia risk assessments. Anesthesia Type Anesthesia Type: General History Source History Obtained from:: Patient and Chart Anesthesia Focused Assessment* Temperature: 98.5 F Pulse Rate: 64 Blood Pressure: 112/49 Respiratory Rate: 18 Pulse Ox: 95 Oxygen Delivery Method: Room Air Airway Assessment Mouth opens: >3 cm Mallampati Score: III Teeth Condition: Missing (Patient has 4 teeth left on the bottom. These are tight. He is edentulous on top) Neck Range of motion (ROM): Limited ROM (Slight decrease in extension) Focused Labs Anesthesia Preop lab: CBC WBC 10.6 K/mm3 (4.4-11.0) 03/04/24 06:56 RBC 4.56 M/mm3 (4.6-6.2) L 03/04/24 06:56 Hgb 13.5 g/dL (13.0-16.5) 03/04/24 06:56 Hct 40.4 % (40-54) 03/04/24 06:56 Plt Count 134 K/mm3 (150-450) L 03/04/24 06:56 CHEMISTRY Potassium 3.1 mmol/L (3.5-5.1) L 03/04/24 06:56 Sodium 139 mmol/L (136-145) 03/04/24 06:56 BUN 14 mg/dL (7-18) 03/04/24 06:56 Creatinine 1.13 mg/dL (0.70-1.30) 03/04/24 06:56 Glucose 125 mg/dL (74-106) H 03/04/24 06:56 POC Glucose 121 mg/dL (74-106) H 12/17/23 07:30 COAG PT 14.2 SECONDS (11.7-14.9) 12/04/23 07:38 Pre-Assessment Diagnosis/Proposed Procedure Planned Operative Procedure(s): Laparoscopic cholecystectomy with intraoperative cholangiogram Anesthesia History Anesthesia History - precision inspector: Anesthesia History - precision inspector Hx Hospitalization No 12/11/23 15:27 Any Problems With Anesthesia No 03/04/24 03:56 Cholinesterase deficiency No 03/04/24 03:56 You/Your Family Experience No 03/04/24 03:56 fever (hyperthermia) with Relationship Recent Exposure to Contagious No 03/04/24 03:56 Disease Does patient have nerve No 03/04/24 03:56 stimulator Patient instructed to have No 03/04/24 03:56 device shut off --Does patient have Pacemaker or ICD? When Was Last Pacemaker Check QUESTION #4 FULL TEXT: You/Your Family Experience fever (hyperthermia) with Anesthesia Last Oral Intake Last Oral intake: Last Oral Intake NPO since Meds taken in AM with sips of water? Meds patient instructed to take am of surgery Any additional information?: Yes NPO since: 00:00 PONV PONV - precision inspector: PONV - precision inspector Female HX of Motion Sickness HX of N/V After Surgery Non-Smoker Duration of Surgery greater than 60 minutes Number of Risk Factors PONV Score Height & Weight Height & Weight: Anesthesia: Height & Weight Height 5 ft 10 in 03/03/24 17:26 Weight: 93.8 kg 03/04/24 06:00 Body Mass Index (BMI) 29.6 03/04/24 06:00 Respiratory Assessment Respiratory Assessment - precision inspector: Respiratory Tract Infection Hx - precision inspector Hx Respiratory Tract Infection No 03/04/24 03:56 STOP Sleep Apnea STOP Sleep Apnea - precision inspector: STOP Sleep Apnea - precision inspector Hx Hypertension Yes: CONTROLLED ON MED 03/03/24 17:26 Hx Sleep Apnea No 03/03/24 17:26 CPAP BIPAP Do you snore loudly (louder Yes 03/03/24 17:26 than talking or can be heard Do you often feel tired/ No 03/03/24 17:26 fatigued/ sleepy during daytime? Has anyone observed you stop Yes 03/03/24 17:26 breathing during sleep? STOP Results Positive 03/03/24 17:26 QUESTION #5 FULL TEXT : Do you snore loudly (louder than talking or can be heard through closed doors)? Tobacco Use History Tobacco Use History - precision inspector: Tobacco Use History - precision inspector Tobacco Use Smoking Status Current every day smoker 03/03/24 17:26 Hx Tobacco Use Yes 03/03/24 17:26 Years Smoking Packs Smoked per Day Smoking Cessation Date was within the last 15 years Hx Smoking Cessation Date Hx Smoking Cessation Counseling Hematologic Medial History Hematologic Hx - precision inspector: Hematologic Medical Hx - file conversion operator Hx of Blood Transfusion No 03/03/24 17:26 Hx of Transfusion in last 3 No 03/03/24 17:26 Months Date of Last Transfusion (if within last 3 months) Ever experience any problems No 03/03/24 17:26 with transfusion(s)? Specify any problems Hx of Preganancy in last 3 N/A 03/03/24 17:26 Months Nurse Filling Out Transfusion RKARPER 03/03/24 17:26 & Questions: Date: 03/03/24 03/03/24 17:26 Time: 17:27 03/03/24 17:26 Patient unable to answer at this time (ie. confused, unrespo /Reproduction History /Reproductive History - precision inspector: /Reproductive Hx- precision inspector Hx Now No 03/04/24 03:56 Gestational Age (in weeks): EDC: Hx Hx Para Hx Section SAB No 03/04/24 03:56 Active Medications Active Medications: Current Medications Generic Name Dose Route Start Last Admin Trade Name Freq PRN Reason Stop Dose Admin Acetaminophen 650 mg 03/03/24 17:33 03/04/24 04:06 Acetaminophen 325 Mg Tablet PO 650 mg Q6H PRN PRN Administration Pain 1-10 Or Fever >100.7 Amlodipine Besylate 10 mg 03/03/24 17:33 03/04/24 08:17 Amlodipine 10 Mg Tablet PO Not Given DAILY SUNNY Protocol Atorvastatin Calcium 40 mg 03/03/24 22:00 03/03/24 21:03 Atorvastatin Calcium 40 Mg Tablet PO 40 mg QHS SUNNY Administration Hydromorphone HCl 0.5 - 1 mg 03/03/24 17:33 Hydromorphone 1 Mg/Ml Syringe IV Q3H PRN PRN Pain Score 6-10 Hydromorphone HCl 0.5 - 1 mg 03/03/24 18:10 Hydromorphone 0.5 Mg/0.5 Ml Syringe IV Q3H PRN PRN Pain Score 6-10 Sodium Chloride 250 mls @ 15 mls/hr 03/03/24 17:24 03/04/24 10:04 IV 0 mls/hr .[id number] PRN Infusion Additional IVPB Infusion Sodium Chloride 250 mls @ 15 mls/hr 03/03/24 17:24 IV .[id number] PRN Saline Flush Piperacillin Sod/Tazobactam 50 mls @ 12.5 mls/hr 03/03/24 22:00 03/04/24 09:37 Sod 3.375 gm/ Sodium Chloride IV Infused Q8 SUNNY Infusion Pantoprazole Sodium 40 mg/ 110 mls @ 330 mls/hr 03/03/24 17:33 03/04/24 09:59 Sodium Chloride IV Infused Q24 SUNNY Infusion Potassium Chloride 10 meq in 100 mls @ 100 mls/hr 03/04/24 08:45 03/04/24 11:00 IV BOLUS 03/04/24 12:44 100 mls/hr Q1H SUNNY Administration Potassium Chloride 10 meq in 100 mls @ 100 mls/hr 03/04/24 09:30 IV BOLUS 03/04/24 13:29 Q1H SUNNY Sodium Chloride 1,000 mls @ 15 mls/hr 03/04/24 11:40 IV .Q48H SUNNY Lisinopril 40 mg 03/03/24 17:33 03/04/24 08:17 Lisinopril 40 Mg Tablet PO Not Given DAILY [facility] Protocol Ondansetron HCl 4 mg 03/03/24 17:33 Ondansetron 4 Mg/2 Ml Vial IV Q8H PRN PRN NAUSEA/VOMITING Oxycodone HCl 5 mg 03/03/24 17:33 03/04/24 04:06 Oxycodone 5 Mg Tablet PO 5 mg Q4H PRN PRN Administration Pain Score 4-10 Sodium Chloride 10 - 40 ml 03/03/24 17:24 0.9% Saline Lock 10 Ml Syringe IV UD PRN SALINE FLUSH PFSH Medical History Encounter for screening colonoscopy HLD (hyperlipidemia) History of colon polyps Osteoarthritis Elevated PSA BPH (benign prostatic hyperplasia) Barretts esophagus Asthma with COPD Altered bowel habits Elevated alkaline phosphatase level VARGAS (nonalcoholic steatohepatitis) Smokeless tobacco use Wears glasses Arthritis High cholesterol Gastric reflux Smoker Type 2 diabetes mellitus Hypertension Home Medications ?Medication ?Instructions ?Recorded ?Last Taken ?Type amlodipine 10 mg tablet 10 mg PO DAILY 07/13/21 12/17/23 History aspirin 81 mg capsule 81 mg PO DAILY 07/13/21 07/11/21 History atorvastatin 40 mg tablet 40 mg PO QHS 07/13/21 07/18/21 History lisinopril 40 mg tablet 40 mg PO DAILY 07/13/21 07/18/21 History magnesium oxide 500 mg PO BID 07/13/21 07/18/21 History albuterol sulfate 90 mcg/actuation 1 inh inhalation PRN 05/12/22 Unknown History aerosol inhaler (Ventolin HFA) omega-3 fatty acids 500 mg PO DAILY 12/11/23 Unknown History pioglitazone 30 mg tablet 30 mg PO DAILY 12/11/23 Unknown History ursodiol 250 mg tablet See Rx Instructions .Route 01/23/24 Unknown Rx .COMPLEX #60 tabs omeprazole 40 mg capsule,delayed 40 mg PO BID #60 caps 03/01/24 Unknown Rx release Allergy/AdvReac Type Severity Reaction Status Date / Time No Known Allergies Allergy Verified 12/17/23 07:36 Family History Father Hypertension HLD (hyperlipidemia) Diabetes TIA (transient ischemic attack) Ischemic heart disease Mother Osteoarthritis Uterine cancer Surgical History Hx of surgical procedure History of tonsillectomy Hx of colonoscopy Social History Smoking Status: Current every day smoker tobacco type: cigarettes and smokeless tobacco Review of Systems (Anesthesia) ROS Narrative System reviewed and no additional complaints, except as documented.
[2024-03-04] MEDS: 0.9% Normal Saline (1000mL) 1,000 ML 15 ML IV ×2 (11:50→14:48)
--- NOTE | 2024-03-04 13:38 | OP.PCM_ITS ---
Report of Operation Date of Procedure: 03/04/24 Pre-Operative Diagnosis: NAFLD, acute cholecystitis Post-Operative Diagnosis: Same Surgery/Procedure Performed:: Laparoscopic attempted subtotal cholecystectomy with STACEY drain placement Description of Surgical Findings:: Cirrhotic liver and dense adhesions with bleeding at the liver and gallbladder wall. Hemostatic agents of hemoblast, fibular, erbe were used for hemostasis and STACEY drain was placed. Surgeon: Julienne Pires casino surveillance officer: Alisha Schmitt casino surveillance officer: Phill Reno Type of Anesthesia: General/Supplemental Anesthesiologist: Feliberto Dixon Special Medications: Zosyn 3.375 g given for acute cholecystitis Q8 on the floor Specimen's removed: none Drains: STACEY 15 Fr Estimated Blood Loss (mL): 100 cc Description of Procedure: Indications: this is a 73 year-old male who developed abdominal pain/nausea/vomiting and on workup was found to have acute cholecystitis with known history of nonalcoholic fatty liver disease, cholelithiasis, with a normal common bile duct. Laparoscopic cholecystectomy was elected. Description procedure: The patient was placed on operating table in supine position. A timeout was completed verifying correct patient, procedure, site, position and special equipment prior to beginning procedure. General Anesthesia was induced. The abdomen was prepped and draped in usual sterile fashion. An incision was made in the natural skin line above the umbilicus. The fascia was elevated and incised. The peritoneum was elevated and incised. Entry into the peritoneum was confirmed visually and no bowel was noted in the vicinity of the incision. Jesus trocar was placed. The abdomen was insufflated with carbon dioxide to a pressure of 12-15 mmHg. Patient tolerated insufflation well. The laparoscope was then inserted and abdomen inspected. No injuries from initial trocar placement were noted. Additional trochars were then inserted in the following locations 5 mm trocar in the epigastrium and 2 more 5 mm trochars along the right costal margin. The abdomen was inspected the liver is noted to be cirrhotic with dense adhesions at the gallbladder. The table is placed in reverse Trendelenburg position with the right side up. The adhesions between the gallbladder/liver and omentum were lysed with the harmonic. Unable to grasp the dome of the gallbladder due to thick wall/distended used the decompression needle. The dome of the gallbladder was grasped with atraumatic grasper passed through the lateral port and attempted to retract superiorly however it just tore through the wall at needle site, causing bleeding from the gallbladder wall. There is also some bleeding from the left side of the gallbladder fundus near the liver. Hemostasis was obtained using the harmonic and the fibular and hemoblast and erbe. The inside of the gallbladder was suctioned using the 10 mm suction as the epigastric trocar site was enlarged to 12 mm. No obvious stones were seen, no bile also seen. 15 Swedish STACEY was placed exiting the right lateral trocar site coursing near the gallbladder fundus. Secondary trochars removed under direct vision. No bleeding was noted the trocar sites. The laparoscope was withdrawn and umbilical trocar removed. The abdomen was allowed to collapse. The fascia of the 12 mm trocars were closed with a [id number] 0 Vicryl suture. The skin was closed with sutures of 4-0 Monocryl and Steri-Strips. The patient was extubated. The patient tolerated procedure well and was taken to the postanesthesia care unit in stable condition. Complications bleeding of liver due to cirrhosis from NAFLD
--- NOTE | 2024-03-04 13:57 | PCM.POST.ANE ---
Anesthesia: Postop Eval I Current Vital Signs Temperature: 98 F Pulse Rate: 95 Blood Pressure: 160/77 Respiratory Rate: 16 Pulse Ox: 94 Oxygen Delivery Method: Nasal Cannula Oxygen Flow Rate (L/min): 3 Assessment Airway patent: Yes Spontaneous unlabored respirations: Yes Mental status: Awake and Calm nausea: No Vomiting: No Anesthesia Complication: No Fluid Hydration Crystalloid volume administer (ml): 1,100 Total IV fluid infused: 1,100 Progress Note Anesthesia document: Postop Eval 1 completed: Yes
--- NOTE | 2024-03-04 14:26 | PCM.PN.BLA ---
Progress Note Due to liver cirrhosis and adhesions/bleeding unable to complete laparoscopic subtotal cholecystectomy, fundus was opened and STACEY was placed. Will plan for transfer to [facility] see if more definitive removal of the gallbladder would be needed discussed with patient and family unsure if this is possibly due to his cirrhotic liver disease which did look more impressive IntraOp than it did on CAT scan, thus would recommend any further surgery being done at a tertiary care facility. Patient and family are agreeable with plan.
--- NOTE | 2024-03-04 14:52 | DS.PCM_ITS ---
Providers Date of Admission: 03/04/24 Primary Care Physician: Dr. Michael Cannon MD Reason For Visit: ACUTE CHOLECYSTITIS Diagnosis Discharge Diagnosis (1) S/P laparoscopic surgery: Status: Acute Code(s): Z98.890 - Other specified postprocedural states (2) Acute cholecystitis: Status: Acute Code(s): K81.0 - Acute cholecystitis Plan Unable to complete laparoscopic subtotal cholecystectomy due to bleeding and cirrhosis. STACEY was placed. Medications at Discharge Home Medications amlodipine 10 mg tablet 10 mg PO DAILY 07/13/21 aspirin 81 mg capsule 81 mg PO DAILY 07/13/21 atorvastatin 40 mg tablet 40 mg PO QHS 07/13/21 lisinopril 40 mg tablet 40 mg PO DAILY 07/13/21 magnesium oxide 500 mg PO BID 07/13/21 albuterol sulfate 90 mcg/actuation aerosol inhaler (Ventolin HFA) 1 inh inhalation PRN 05/12/22 omega-3 fatty acids 500 mg PO DAILY 12/11/23 pioglitazone 30 mg tablet 30 mg PO DAILY 12/11/23 ursodiol 250 mg tablet See Rx Instructions .Route .COMPLEX #60 tabs 01/23/24 omeprazole 40 mg capsule,delayed release 40 mg PO BID #60 caps 03/01/24 Hospital Course Operations None (Laparoscopic attempted subtotal cholecystectomy with STACEY drain placement) Procedures None Summary of Care Provided Minutes Spent on Discharge: 15 Hospital Course: 73-year-old male presented to the ER on Sunday due to right upper quadrant pain and had not been able to eat since Sunday did get sent home initially. Patient came back on Sunday to the ER with still right upper quadrant pain white blood count of 11. Ultrasound of the gallbladder showed cholelithiasis thickened wall at 5 mm. Attempted to do a laparoscopic cholecystectomy/subtotal however due to patient's cirrhosis and bleeding unable to remove the gallbladder and placed at STACEY drain in the gallbladder area. Plan for transfer to tertiary care facility for possible definitive surgery for the gallbladder due to cirrhosis. Physical Exam Const alert, oriented x3 and no apparent distress Resp normal respiratory effort Cardio regular rate GI GI Narrative: Incisions clean and dry intact with Steri-Strips, STACEY sanguinous, tender near incisions appropriate Weight / BMI Weight Weight: 206 lb 12.697 oz Body Mass Index (BMI) 29.6 ABG / Lab / Microbiology Data 03/04/24 14:34 03/04/24 06:56 Laboratory: Laboratory Results - last 24 hr 03/03/24 15:12: Direct Bilirubin 0.47 H 03/04/24 06:56: WBC 10.6, RBC 4.56 L, Hgb 13.5, Hct 40.4, MCV 88.6, MCH 29.6, MCHC 33.4, RDW Std Deviation 43.6, RDW Coeff of Samm 13.4, Plt Count 134 L, MPV 12.3 H, Immature Gran % (Auto) 0.700, Neut % (Auto) 78.9 H, Lymph % (Auto) 10.1 L, [place] % (Auto) 9.6, Eos % (Auto) 0.3, Baso % (Auto) 0.4, Absolute Neuts (auto) 8.4 H, Absolute Lymphs (auto) 1.07, Nucleated RBC % 0, Sodium 139, Potassium 3.1 L, Chloride 108 H, Carbon Dioxide 25.0, Anion Gap 6, BUN 14, Creatinine 1.13, Estim Creat Clear Calc 66.97, Est GFR (MDRD) Af Amer 82, Est GFR (MDRD) Non-Af 68, BUN/Creatinine Ratio 12.4, Glucose 125 H, Hemoglobin A1c 5.7 H, Calcium 8.4 L, Total Bilirubin 1.50 H, AST 9 L, ALT 11 L, Alkaline Phosphatase 101, Total Protein 6.0 L, Albumin 2.6 L, Globulin 3.4, Albumin/Globulin Ratio 0.8 L 03/04/24 13:15: Blood Type Cancelled 03/04/24 13:15: Blood Type Cancelled, Antibody Screen Cancelled 03/04/24 13:15: Antibody Screen Cancelled, Crossmatch See Detail 03/04/24 13:15: Crossmatch See Detail 03/04/24 14:05: Blood Type O POSITIVE, Crossmatch See Detail Radiography Diagnostic Testing: Radiology Impression Gallbladder Ultrasound 03/03/24 13:14 IMPRESSION: 1. Gallstones and sludge with thickening of the gallbladder wall. Correlation with nuclear medicine biliary scan might be of value to rule out acute cholecystitis. 2. Hepatic steatosis. 3. Right renal cyst. Electronically Signed: Jg Xie MD at 14:54 EDT , Meaningful Use Info Meaningful Use Meaningful Use Diagnoses (Choose all that apply): None applicable Ischemic Stroke Statin Dosing Therapy Reference: STATIN DOSE THERAPY REFERENCE: * Patients > 75 years receive moderate or high dose statin therapy. * Patients 75 years or YOUNGER should receive HIGH intensity statin dose unless contraindicated. You will be required to document reason for non-treatment if statin daily dose does not meet guidelines. HIGH DOSE STATIN THERAPY DAILY Atorvastatin > than or = to 40 mg Rosuvastatin > than or = to 20 mg Amlodipine + Atorvastatin > than or = to 2.5/40 mg Ezetimibe + Simvastatin 10/80 mg Simvastatin 80mg Discharge Plan Admission Admit Date/Time: 03/04/24 15:30 Attending Provider: Julienne Pires Primary Care Provider: Michael Cannon Discharge Orders/Prescriptions Prescriptions: No Action albuterol sulfate [Ventolin HFA] 90 mcg/actuation HFA aerosol inhaler 1 inh inhalation PRN atorvastatin 40 mg tablet 40 mg PO QHS amlodipine 10 mg tablet 10 mg PO DAILY lisinopril 40 mg tablet 40 mg PO DAILY magnesium oxide 250 mg magnesium Tablet 500 mg PO BID aspirin 81 mg Capsule 81 mg PO DAILY omega-3 fatty acids Capsule 500 mg PO DAILY pioglitazone 30 mg tablet 30 mg PO DAILY omeprazole 40 mg capsule,delayed release(DR/EC) 40 mg PO BID Qty: 60 0RF ursodiol 250 mg tablet See Rx Instructions .ROUTE .COMPLEX Qty: 60 0RF Dose Instruction: Take 1 tablet by mouth twice daily Rx Instructions: Take 1 tablet by mouth twice daily Referrals / Follow Up: Michael Cannon MD [Primary Care Provider] - Disposition Disposition (needs filled in before D/C Order can be placed): [facility]
[2024-03-04 15:01] LABS: Hematocrit 39.8 % (40-54)
--- NOTE | 2024-03-04 15:57 | CASEMGMT ---
Met with patient to complete [place] form. [place] form explained to patient who voiced understanding and signed form. Original form placed in pt?s chart and copy provided to patient. Renay Ch, Discharge Planning Asst
--- NOTE | 2024-03-04 16:33 | POSTOPAN2_ITS ---
Anesthesia Postop Eval I Sum Postop Eval Completion status Anesthesia document: Postop Eval 1 completed: Yes Anesthesia Postop Eval I Summary Anesthesia Postop Eval I Summary: Anesthesia Postop Eval I: Assessment Summary Airway patent Yes 03/04/24 13:58 ACCOUNT [email or web address] Spontaneous unlabored Yes 03/04/24 13:58 ACCOUNT [email or web address] respirations Mental status Awake,Calm 03/04/24 13:58 ACCOUNT [email or web address] nausea No 03/04/24 13:58 ACCOUNT [email or web address].GDOTT Vomiting No 03/04/24 13:58 ACCOUNT [email or web address] Anesthesia Postop Eval I: Fluid Summary Crystalloid volume administer 1,100 03/04/24 13:58 ACCOUNT LEADER.GDOTT (ml) Colloids volume administered ( ml) Blood Product volume administered (ml) Total IV fluid infused 1,100 03/04/24 13:58 ACCOUNT LEADER.GDOTT Anesthesia Postop Eval I: Summary Notes Anesthesia Complication No 03/04/24 13:58 ACCOUNT LEADER.GDOTT Anesthesia Complication Comment: Post-operative progress note Anesthesia: Postop Eval II Evaluation Mental status: Awake and Calm Pain Level: 0 nausea: No Vomiting: No Complications Anesthesia Complication: No
--- NOTE | 2024-03-04 16:33 | PCM.POSTANE2 ---
Anesthesia Postop Eval I Sum Postop Eval Completion status Anesthesia document: Postop Eval 1 completed: Yes Anesthesia Postop Eval I Summary Anesthesia Postop Eval I Summary: Anesthesia Postop Eval I: Assessment Summary Airway patent Yes 03/04/24 13:58 POLISHER AND BUFFER.[email or web address] Spontaneous unlabored Yes 03/04/24 13:58 POLISHER AND BUFFER.GDOTT respirations Mental status Awake,Calm 03/04/24 13:58 POLISHER AND BUFFER.GDOTT nausea No 03/04/24 13:58 POLISHER AND BUFFER.GDOTT Vomiting No 03/04/24 13:58 POLISHER AND BUFFER.GDOTT Anesthesia Postop Eval I: Fluid Summary Crystalloid volume administer 1,100 03/04/24 13:58 POLISHER AND BUFFER.GDOTT (ml) Colloids volume administered ( ml) Blood Product volume administered (ml) Total IV fluid infused 1,100 03/04/24 13:58 POLISHER AND BUFFER.GDOTT Anesthesia Postop Eval I: Summary Notes Anesthesia Complication No 03/04/24 13:58 POLISHER AND BUFFER.GDOTT Anesthesia Complication Comment: Post-operative progress note Anesthesia: Postop Eval II Evaluation Mental status: Awake and Calm Pain Level: 0 nausea: No Vomiting: No Complications Anesthesia Complication: No
[2024-03-04] MEDS: Atorvastatin Calcium 40 MG Tablet PO (20:50)
[2024-03-05 03:45] VITALS: BP 130/64; PULSE 70; RESP 18; TEMP 36.8; O2SAT 96
[2024-03-05] MEDS: oxyCODONE 5 MG Tablet PO ×4 (04:11→22:00)
[2024-03-05 06:00] VITALS: BMI 29.6
[2024-03-05] MEDS: Piperacil/Tazobactam 3.375 GM in 0.9% Normal Saline (50mL MB+) 50 ML IV ×3 (06:00→22:00)
[2024-03-05 06:55] LABS: Absolute Lymphocyte Count 0.61 X10^3/uL (0.83-4.51); Absolute Neutrophil Count 9.1 X10^3/uL (2.0-7.7); Basophil# 0.01 X10^3/uL; Basophil% 0.1 % (0-1); Hematocrit 38.5 % (40-54); Hemoglobin 12.6 g/dL (13.0-16.5); Lymphocyte # 0.61 X10^3/ul (0.83-4.51); Lymphocyte % 5.9 % (19-41); Mean Corp Hgb Conc 32.7 g/dL (32-36); Mean Corpuscular Volume 88.5 fL (80-94); Mean Platelet Vol. 12.3 fl (6.2-12.0); Monocyte# 0.51 X10^3/uL; Monocyte% 4.9 % (0-10); NRBC Flagged by Analyzer 0 % (0-5); Neutrophil # 9.12 X10^3/uL (2.7-7.7); Neutrophil % 88.4 % (47-70); Platelet Count 151 K/mm3 (150-450); RBC Distribution Width CV 13.2 % (11.6-14.6); RBC Distribution Width SD 43.1 fl (35.1-43.9); Red Blood Count 4.35 M/mm3 (4.6-6.2); White Blood Count 10.3 K/mm3 (4.4-11.0)
--- NOTE | 2024-03-05 08:11 | PCM.PN.SRG ---
Subjective Subjective Patient is a 73 y/o M I am following s/p aborted laparoscopic cholecystectomy by Dr. Pires. Patient notes right upper quadrant discomfort similar to his presenting symptoms. He denies nausea, vomiting, fever. He has a STACEY drain that was placed during surgery yesterday. Objective Data Objective Data Vital Signs: Vital Signs Temp Pulse Resp BP Pulse Ox O2 Del Method O2 Flow Rate 98.3 F 70 18 130/64 H 96 Nasal Cannula 2 03/05/24 03:45 03/05/24 03:45 03/05/24 03:45 03/05/24 03:45 03/05/24 03:45 03/05/24 03:45 03/05/24 03:45 Oxygen Flow Rate (L/min) 2 Oxygen Delivery Method Nasal Cannula Weight: 206 lb 12.697 oz Body Mass Index (BMI) 29.6 Intake & Output: Intake and Output for Last 24 Hours 03/03/24 03/04/24 03/05/24 23:59 23:59 23:59 Intake Total 926.67 / 926.67 2541.91 / 2541.91 190 / 190 Output Total 320 / 320 440 / 440 Balance 926.67 / 926.67 2221.91 / 2221.91 -250 / -250 Lab / Micro Data 03/05/24 06:36 03/04/24 06:56 Labs: Laboratory Results - last 24 hr 03/04/24 06:56: Sodium 139, Potassium 3.1 L, Chloride 108 H, Carbon Dioxide 25.0, Anion Gap 6, BUN 14, Creatinine 1.13, Estim Creat Clear Calc 66.97, Est GFR (MDRD) Af Amer 82, Est GFR (MDRD) Non-Af 68, BUN/Creatinine Ratio 12.4, Glucose 125 H, Hemoglobin A1c 5.7 H, Calcium 8.4 L, Total Bilirubin 1.50 H, AST 9 L, ALT 11 L, Alkaline Phosphatase 101, Total Protein 6.0 L, Albumin 2.6 L, Globulin 3.4, Albumin/Globulin Ratio 0.8 L 03/04/24 13:15: Blood Type Cancelled 03/04/24 13:15: Blood Type Cancelled, Antibody Screen Cancelled 03/04/24 13:15: Antibody Screen Cancelled, Crossmatch See Detail 03/04/24 13:15: Crossmatch See Detail 03/04/24 14:05: Blood Type O POSITIVE, Antibody Screen NEGATIVE, Crossmatch See Detail 03/04/24 14:34: Hgb 13.0, Hct 39.8 L 03/05/24 06:36: WBC 10.3, RBC 4.35 L, Hgb 12.6 L, Hct 38.5 L, MCV 88.5, MCH 29.0, MCHC 32.7, RDW Std Deviation 43.1, RDW Coeff of Samm 13.2, Plt Count 151, MPV 12.3 H, Immature Gran % (Auto) 0.700, Neut % (Auto) 88.4 H, Lymph % (Auto) 5.9 L, [place] % (Auto) 4.9, Eos % (Auto) 0.0, Baso % (Auto) 0.1, Absolute Neuts (auto) 9.1 H, Absolute Lymphs (auto) 0.61 L, Nucleated RBC % 0 Physical Exam GI GI Narrative: Abdomen- soft, tenderness in the right upper quadrant. Less distention of the abdomen. Incisions c/d/i. No erythema or infection noted. STACEY drain intact with serosanguineous drainage noted. Assessment & Plan Assessment/Plan (1) S/P laparoscopic surgery: PLAN: I am following this patient in conjunction with Dr. Pires. She will independently evaluate this patient. S/p attempted subtotal cholecystectomy 03/04/24. Aborted due to new diagnosis of cirrhosis secondary to advancement of VARGAS CBC reviewed. Hgb stable. Chemistry pending Increase diet to clear liquids Plan to transfer patient to [facility], patient has been accepted, awaiting bed Continue to monitor STACEY output We will continue to monitor this patient Charges/Coding Visit Charges Inpatient E&M: 65185 Subs Hosp L1 (no charge; post-op)
[2024-03-05 08:22] LABS: AST(SGOT) 13 U/L (15-37); Alanine Aminotransfer ALT/SGPT 11 U/L (16-61); Albumin, Serum 2.4 g/dL (3.2-5.0); Alkaline Phosphatase 93 U/L (45-117); Anion Gap 6 (5-15); BUN 18 mg/dL (7-18); BUN/Creat Ratio 17.5 RATIO (10-20); Bilirubin, Direct 0.39 mg/dL (0.00-0.30); Calcium,Total 8.3 mg/dL (8.5-10.1); Chloride 111 mmol/L (98-107); Creatinine, Serum 1.03 mg/dL (0.70-1.30); EST Glomerular Filtration Rate 75 mL/min (>60); Est Glom Filt Rate - Afr Amer 91 mL/min (>60); Estimated Creatinine Clearance 73.47 ml/min; Globulin 3.4 g/dL (2.2-4.2); Glucose 144 mg/dL (74-106); Potassium 3.8 mmol/L (3.5-5.1); Protein, Total 5.8 g/dL (6.4-8.2); Sodium Level 140 mmol/L (136-145)
[2024-03-05 08:55] VITALS: BP 101/82; PULSE 75; RESP 16; TEMP 36.8; O2SAT 98
[2024-03-05] MEDS: amLODIPine 10 MG Tablet PO (09:00)
[2024-03-05] MEDS: Lisinopril 40 MG Tablet PO (09:01)
[2024-03-05 10:21] VITALS: O2SAT 98
--- NOTE | 2024-03-05 10:31 | CASEMGMT ---
Insurance review for hospitals In-network with [facility] Dual Complete insurance if transfer is recommended is as follows: [facility], [facility], [facility], [facility], [facility], [facility], [facility], [place], [facility] ([facility]), and . Renay Ch, Discharge Planning Asst.
[2024-03-05] MEDS: Pantoprazole Sodium 40 MG in 0.9% Normal Saline (100mL MB+) 100 ML 330 MG IV (11:53)
[2024-03-05] MEDS: 0.9% Normal Saline (250mL Bag) 250 ML 15 ML IV (11:58)
[2024-03-05 13:00] VITALS: BP 103/73; PULSE 65; RESP 15; TEMP 37.3; O2SAT 96
[2024-03-05 21:57] VITALS: BP 137/63; PULSE 66; RESP 16; TEMP 36.9; O2SAT 94
[2024-03-05] MEDS: Atorvastatin Calcium 40 MG Tablet PO (22:00)
[2024-03-06 04:30] VITALS: BP 135/62; PULSE 69; RESP 18; TEMP 36.9; O2SAT 94
[2024-03-06] MEDS: Piperacil/Tazobactam 3.375 GM in 0.9% Normal Saline (50mL MB+) 50 ML IV ×3 (04:34→22:19)
[2024-03-06] MEDS: oxyCODONE 5 MG Tablet PO ×2 (04:34→22:19)
[2024-03-06 07:23] LABS: Absolute Lymphocyte Count 1.29 X10^3/uL (0.83-4.51); Absolute Neutrophil Count 5.8 X10^3/uL (2.0-7.7); Basophil# 0.02 X10^3/uL; Basophil% 0.3 % (0-1); Eosinophil# 0.08 X10^3/uL; Hematocrit 37.6 % (40-54); Hemoglobin 12.7 g/dL (13.0-16.5); Lymphocyte # 1.29 X10^3/ul (0.83-4.51); Lymphocyte % 16.6 % (19-41); Mean Corp Hgb Conc 33.8 g/dL (32-36); Mean Corpuscular Hgb 29.5 pg (27.0-32.0); Mean Corpuscular Volume 87.2 fL (80-94); Mean Platelet Vol. 11.8 fl (6.2-12.0); Monocyte# 0.58 X10^3/uL; Monocyte% 7.5 % (0-10); NRBC Flagged by Analyzer 0 % (0-5); Neutrophil # 5.77 X10^3/uL (2.7-7.7); Neutrophil % 74.1 % (47-70); Platelet Count 174 K/mm3 (150-450); RBC Distribution Width CV 13.2 % (11.6-14.6); Red Blood Count 4.31 M/mm3 (4.6-6.2); White Blood Count 7.8 K/mm3 (4.4-11.0)
[2024-03-06 08:02] LABS: ALB/GLOB Ratio 0.8 RATIO (0.9-2.4); AST(SGOT) 19 U/L (15-37); Alanine Aminotransfer ALT/SGPT 19 U/L (16-61); Albumin, Serum 2.5 g/dL (3.2-5.0); Alkaline Phosphatase 116 U/L (45-117); Anion Gap 7 (5-15); BUN 15 mg/dL (7-18); Calcium,Total 8.3 mg/dL (8.5-10.1); Chloride 106 mmol/L (98-107); EST Glomerular Filtration Rate 78 mL/min (>60); Est Glom Filt Rate - Afr Amer 94 mL/min (>60); Estimated Creatinine Clearance 75.67 ml/min; Globulin 3.3 g/dL (2.2-4.2); Glucose 125 mg/dL (74-106); Potassium 3.1 mmol/L (3.5-5.1); Protein, Total 5.8 g/dL (6.4-8.2); Sodium Level 137 mmol/L (136-145)
--- NOTE | 2024-03-06 08:06 | PCM.PN.SRG ---
Subjective Subjective Patient is a 73 y/o M who is evaluated resting comfortably in bed. He notes only discomfort is at the STACEY drain site. He denies any nausea, vomiting, fever. He is tolerating clear liquids. Objective Data Objective Data Vital Signs: Vital Signs Temp Pulse Resp BP Pulse Ox O2 Del Method O2 Flow Rate 98.5 F 69 18 135/62 H 94 Room Air 2 03/06/24 04:30 03/06/24 04:30 03/06/24 04:03/06/24 04:03/06/24 04:30 03/06/24 04:30 03/05/24 03:45 Oxygen Flow Rate (L/min) 2 Oxygen Delivery Method Room Air Weight: 206 lb 12.697 oz Body Mass Index (BMI) 29.6 Intake & Output: Intake and Output for Last 24 Hours 03/04/24 03/05/24 03/06/24 23:59 23:59 23:59 Intake Total 2541.91 / 2541.91 1255 / 1255 550 / 550 Output Total 320 / 320 1005 / 1005 635 / 635 Balance 2221.91 / 2221.91 250 / 250 -85 / -85 Lab / Micro Data 03/06/24 06:38 03/06/24 06:38 Labs: Laboratory Results - last 24 hr 03/05/24 06:36: Sodium 140, Potassium 3.8, Chloride 111 H, Carbon Dioxide 23.0, Anion Gap 6, BUN 18, Creatinine 1.03, Estim Creat Clear Calc 73.47, Est GFR (MDRD) Af Amer 91, Est GFR (MDRD) Non-Af 75, BUN/Creatinine Ratio 17.5, Glucose 144 H, Calcium 8.3 L, Total Bilirubin 0.80, Direct Bilirubin 0.39 H, AST 13 L, ALT 11 L, Alkaline Phosphatase 93, Total Protein 5.8 L, Albumin 2.4 L, Globulin 3.4 03/06/24 06:38: WBC 7.8, RBC 4.31 L, Hgb 12.7 L, Hct 37.6 L, MCV 87.2, MCH 29.5, MCHC 33.8, RDW Std Deviation 42.0, RDW Coeff of Samm 13.2, Plt Count 174, MPV 11.8, Immature Gran % (Auto) 0.500, Neut % (Auto) 74.1 H, Lymph % (Auto) 16.6 L, [place] % (Auto) 7.5, Eos % (Auto) 1.0, Baso % (Auto) 0.3, Absolute Neuts (auto) 5.8, Absolute Lymphs (auto) 1.29, Nucleated RBC % 0, Sodium 137, Potassium 3.1 L, Chloride 106, Carbon Dioxide 24.0, Anion Gap 7, BUN 15, Creatinine 1.00, Estim Creat Clear Calc 75.67, Est GFR (MDRD) Af Amer 94, Est GFR (MDRD) Non-Af 78, BUN/Creatinine Ratio 15.0, Glucose 125 H, Calcium 8.3 L, Total Bilirubin 0.80, AST 19, ALT 19, Alkaline Phosphatase 116, Total Protein 5.8 L, Albumin 2.5 L, Globulin 3.3, Albumin/Globulin Ratio 0.8 L Physical Exam Const alert, oriented x3 and no apparent distress GI GI Narrative: Abdomen- soft, slight tenderness at the STACEY drain site. Op-sites removed from the abdominal incisions. Incisions c/d/i. No erythema or infection noted. STACEY drain was stripped. Assessment & Plan Assessment/Plan (1) S/P laparoscopic surgery: (2) Acute cholecystitis: (3) NAFLD (nonalcoholic fatty liver disease): PLAN: Plan I am following this patient in conjunction with Dr. Mireles in Dr. Pires's absence. He has independently evaluated this patient. Labs reviewed Coags ordered Continue with clear liquids Check on transfer bed We will continue to monitor this patient Charges/Coding Visit Charges Inpatient E&M: 19834 Subs Hosp L1 (post-op)
[2024-03-06 08:35] VITALS: BP 165/70; PULSE 64; RESP 18; TEMP 36.6; O2SAT 95
[2024-03-06 08:36] LABS: International Normalized Ratio 1.2; Partial Thromboplast Time 32.7 Seconds (24.1-36.2); Prothrombin Time (Protime)PT. 14.8 SECONDS (11.7-14.9)
[2024-03-06] MEDS: Lisinopril 40 MG Tablet PO (08:40)
[2024-03-06] MEDS: amLODIPine 10 MG Tablet PO (08:40)
[2024-03-06 08:41] VITALS: O2SAT 98
[2024-03-06] MEDS: Pantoprazole Sodium 40 MG in 0.9% Normal Saline (100mL MB+) 100 ML 330 MG IV (10:14)
[2024-03-06] MEDS: Potassium Chloride 10mEq/100mL 10 MEQ/100 ML IV.SOLN. 100 MEQ IV BOLUS ×4 (12:17→16:56)
[2024-03-06 14:40] VITALS: BP 141/59; PULSE 66; RESP 18; TEMP 36.7; O2SAT 96
[2024-03-06] MEDS: Acetaminophen 325 MG Tablet 650 MG PO (14:47)
[2024-03-06 22:18] VITALS: BP 149/80; PULSE 84; RESP 18; TEMP 36.8; O2SAT 96
[2024-03-06] MEDS: Atorvastatin Calcium 40 MG Tablet PO (22:19)
[2024-03-07 03:47] VITALS: BP 124/57; PULSE 60; RESP 18; TEMP 37; O2SAT 98
[2024-03-07] MEDS: Piperacil/Tazobactam 3.375 GM in 0.9% Normal Saline (50mL MB+) 50 ML IV ×3 (05:13→22:44)
[2024-03-07 06:00] VITALS: BMI 28.8
[2024-03-07 06:54] LABS: Absolute Lymphocyte Count 1.13 X10^3/uL (0.83-4.51); Absolute Neutrophil Count 3.4 X10^3/uL (2.0-7.7); Basophil# 0.03 X10^3/uL; Basophil% 0.6 % (0-1); Eosinophil# 0.15 X10^3/uL; Eosinophils% 2.9 % (0-5); Hematocrit 38.1 % (40-54); Hemoglobin 12.7 g/dL (13.0-16.5); Lymphocyte # 1.13 X10^3/ul (0.83-4.51); Lymphocyte % 21.9 % (19-41); Mean Corp Hgb Conc 33.3 g/dL (32-36); Mean Corpuscular Hgb 29.4 pg (27.0-32.0); Mean Corpuscular Volume 88.2 fL (80-94); Mean Platelet Vol. 11.4 fl (6.2-12.0); Monocyte# 0.48 X10^3/uL; Monocyte% 9.3 % (0-10); NRBC Flagged by Analyzer 0 % (0-5); Neutrophil # 3.36 X10^3/uL (2.7-7.7); Neutrophil % 64.9 % (47-70); Platelet Count 183 K/mm3 (150-450); RBC Distribution Width CV 13.3 % (11.6-14.6); RBC Distribution Width SD 43.2 fl (35.1-43.9); Red Blood Count 4.32 M/mm3 (4.6-6.2); White Blood Count 5.2 K/mm3 (4.4-11.0)
[2024-03-07 07:14] LABS: Anion Gap 6 (5-15); BUN 12 mg/dL (7-18); BUN/Creat Ratio 13.1 RATIO (10-20); Calcium,Total 8.4 mg/dL (8.5-10.1); Chloride 108 mmol/L (98-107); Creatinine, Serum 0.92 mg/dL (0.70-1.30); EST Glomerular Filtration Rate 86 mL/min (>60); Est Glom Filt Rate - Afr Amer 104 mL/min (>60); Estimated Creatinine Clearance 81.32 ml/min; Glucose 119 mg/dL (74-106); Potassium 3.5 mmol/L (3.5-5.1); Sodium Level 139 mmol/L (136-145)
--- NOTE | 2024-03-07 07:18 | PCM.PN.SRG ---
Subjective Subjective uri clears/fulls, denies pain, STACEY serosang-more sang Objective Data Objective Data Vital Signs: Vital Signs Temp Pulse Resp BP Pulse Ox O2 Del Method O2 Flow Rate 98.6 F 60 18 124/57 H 98 Room Air 2 03/07/24 03:47 03/07/24 03:47 03/07/24 03:47 03/07/24 03:47 03/07/24 03:47 03/07/24 03:47 03/05/24 03:45 Oxygen Flow Rate (L/min) 2 Oxygen Delivery Method Room Air Weight: 201 lb 11.567 oz Body Mass Index (BMI) 28.8 Intake & Output: Intake and Output for Last 24 Hours 03/05/24 03/06/24 03/07/24 23:59 23:59 23:59 Intake Total 1255 / 1255 1854 / 2454 950 / 950 Output Total 1005 / 1005 750 / 795 110 / 110 Balance 250 / 250 1104 / 1659 840 / 840 Lab / Micro Data 03/07/24 05:56 03/07/24 05:56 Labs: Laboratory Results - last 24 hr 03/06/24 06:38: WBC 7.8, RBC 4.31 L, Hgb 12.7 L, Hct 37.6 L, MCV 87.2, MCH 29.5, MCHC 33.8, RDW Std Deviation 42.0, RDW Coeff of Samm 13.2, Plt Count 174, MPV 11.8, Immature Gran % (Auto) 0.500, Neut % (Auto) 74.1 H, Lymph % (Auto) 16.6 L, [place] % (Auto) 7.5, Eos % (Auto) 1.0, Baso % (Auto) 0.3, Absolute Neuts (auto) 5.8, Absolute Lymphs (auto) 1.29, Nucleated RBC % 0, PT 14.8, INR 1.2, APTT 32.7, Sodium 137, Potassium 3.1 L, Chloride 106, Carbon Dioxide 24.0, Anion Gap 7, BUN 15, Creatinine 1.00, Estim Creat Clear Calc 75.67, Est GFR (MDRD) Af Amer 94, Est GFR (MDRD) Non-Af 78, BUN/Creatinine Ratio 15.0, Glucose 125 H, Calcium 8.3 L, Total Bilirubin 0.80, AST 19, ALT 19, Alkaline Phosphatase 116, Total Protein 5.8 L, Albumin 2.5 L, Globulin 3.3, Albumin/Globulin Ratio 0.8 L 03/07/24 05:56: WBC 5.2, RBC 4.32 L, Hgb 12.7 L, Hct 38.1 L, MCV 88.2, MCH 29.4, MCHC 33.3, RDW Std Deviation 43.2, RDW Coeff of Samm 13.3, Plt Count 183, MPV 11.4, Immature Gran % (Auto) 0.400, Neut % (Auto) 64.9, Lymph % (Auto) 21.9, [place] % (Auto) 9.3, Eos % (Auto) 2.9, Baso % (Auto) 0.6, Absolute Neuts (auto) 3.4, Absolute Lymphs (auto) 1.13, Nucleated RBC % 0, Sodium 139, Potassium 3.5, Chloride 108 H, Carbon Dioxide 25.0, Anion Gap 6, BUN 12, Creatinine 0.92, Estim Creat Clear Calc 81.32, Est GFR (MDRD) Af Amer 104, Est GFR (MDRD) Non-Af 86, BUN/Creatinine Ratio 13.1, Glucose 119 H, Calcium 8.4 L Physical Exam Const alert, oriented x3 and no apparent distress GI GI Narrative: Abdomen- soft, slight tenderness at the STACEY drain site-serosang, more sang. Incisions c/d/i. No erythema or infection noted. STACEY drain was stripped. Assessment & Plan Assessment/Plan (1) S/P laparoscopic surgery: (2) Acute cholecystitis: (3) NAFLD (nonalcoholic fatty liver disease): PLAN: Plan uri clears denies abd pain, await transfer bed to [facility]-- hopefully available today continue zosyn IV lft pending Hb stable at 12.7 Julienne Pires M.D. Pager: [phone] [facility] [address] [place] [address], [facility], [address] [place] [id number] Office: [phone]
[2024-03-07 07:32] VITALS: O2SAT 97
[2024-03-07 08:10] VITALS: BP 131/60; PULSE 58; RESP 18; TEMP 37.1; O2SAT 96
[2024-03-07] MEDS: amLODIPine 10 MG Tablet PO (08:14)
[2024-03-07] MEDS: Lisinopril 40 MG Tablet PO (08:15)
[2024-03-07 09:39] LABS: AST(SGOT) 35 U/L (15-37); Alanine Aminotransfer ALT/SGPT 28 U/L (16-61); Albumin, Serum 2.7 g/dL (3.2-5.0); Alkaline Phosphatase 149 U/L (45-117); Bilirubin, Direct 0.37 mg/dL (0.00-0.30); Globulin 3.6 g/dL (2.2-4.2); Protein, Total 6.3 g/dL (6.4-8.2)
[2024-03-07] MEDS: Pantoprazole Sodium 40 MG in 0.9% Normal Saline (100mL MB+) 100 ML 330 MG IV (09:44)
[2024-03-07 14:10] VITALS: BP 132/91; PULSE 59; RESP 18; TEMP 36.6; O2SAT 97
[2024-03-07 20:09] VITALS: BP 119/51; PULSE 56; RESP 18; TEMP 36.8; O2SAT 95
[2024-03-07] MEDS: Atorvastatin Calcium 40 MG Tablet PO (22:45)
[2024-03-08 02:38] VITALS: BP 152/74; PULSE 59; RESP 16; TEMP 36.6; O2SAT 96
[2024-03-08] MEDS: Piperacil/Tazobactam 3.375 GM in 0.9% Normal Saline (50mL MB+) 50 ML IV ×2 (05:19→13:12)
[2024-03-08 06:00] VITALS: BMI 29.1
[2024-03-08 06:49] LABS: Absolute Lymphocyte Count 1.05 X10^3/uL (0.83-4.51); Absolute Neutrophil Count 3.8 X10^3/uL (2.0-7.7); Basophil# 0.05 X10^3/uL; Basophil% 0.9 % (0-1); Eosinophil# 0.22 X10^3/uL; Eosinophils% 3.9 % (0-5); Hematocrit 39.8 % (40-54); Hemoglobin 13.4 g/dL (13.0-16.5); Lymphocyte # 1.05 X10^3/ul (0.83-4.51); Lymphocyte % 18.9 % (19-41); Mean Corp Hgb Conc 33.7 g/dL (32-36); Mean Corpuscular Hgb 29.5 pg (27.0-32.0); Mean Corpuscular Volume 87.7 fL (80-94); Mean Platelet Vol. 11.1 fl (6.2-12.0); Monocyte# 0.46 X10^3/uL; Monocyte% 8.3 % (0-10); NRBC Flagged by Analyzer 0 % (0-5); Neutrophil # 3.77 X10^3/uL (2.7-7.7); Neutrophil % 67.6 % (47-70); Platelet Count 208 K/mm3 (150-450); RBC Distribution Width CV 13.2 % (11.6-14.6); RBC Distribution Width SD 42.5 fl (35.1-43.9); Red Blood Count 4.54 M/mm3 (4.6-6.2); White Blood Count 5.6 K/mm3 (4.4-11.0)
[2024-03-08 07:22] LABS: AST(SGOT) 23 U/L (15-37); Alanine Aminotransfer ALT/SGPT 23 U/L (16-61); Albumin, Serum 2.7 g/dL (3.2-5.0); Alkaline Phosphatase 145 U/L (45-117); Anion Gap 5 (5-15); BUN 9 mg/dL (7-18); BUN/Creat Ratio 8.5 RATIO (10-20); Bilirubin, Direct 0.31 mg/dL (0.00-0.30); Calcium,Total 8.8 mg/dL (8.5-10.1); Chloride 107 mmol/L (98-107); Creatinine, Serum 1.06 mg/dL (0.70-1.30); EST Glomerular Filtration Rate 73 mL/min (>60); Est Glom Filt Rate - Afr Amer 88 mL/min (>60); Globulin 3.5 g/dL (2.2-4.2); Glucose 142 mg/dL (74-106); Potassium 3.6 mmol/L (3.5-5.1); Protein, Total 6.2 g/dL (6.4-8.2); Sodium Level 137 mmol/L (136-145)
--- NOTE | 2024-03-08 07:25 | PCM.PN.SRG ---
Subjective Subjective Patient denies abdominal pain tolerate falls with no issues yesterday. Still awaiting bed. Objective Data Objective Data Vital Signs: Vital Signs Temp Pulse Resp BP Pulse Ox O2 Del Method O2 Flow Rate 97.9 F 59 L 16 152/74 H 96 Room Air 2 03/08/24 02:38 03/08/24 02:38 03/08/24 02:38 03/08/24 02:38 03/08/24 02:38 03/08/24 02:38 03/05/24 03:45 Oxygen Flow Rate (L/min) 2 Oxygen Delivery Method Room Air Weight: 203 lb 11.314 oz Body Mass Index (BMI) 29.1 Intake & Output: Intake and Output for Last 24 Hours 03/06/24 03/07/24 03/08/24 23:59 23:59 23:59 Intake Total 1854 / 2454 1160 / 1160 950 / 950 Output Total 750 / 795 245 / 245 420 / 420 Balance 1104 / 1659 915 / 915 530 / 530 Medical Nutrition Assessment Dietitian: Malnutrition Criteria Met Start: 03/07/24 14:34 Freq: Status: Active Protocol: Document 03/07/24 14:34 SLA (Rec: 03/07/24 14:34 SLA [email or web address]) Nutrition Malnutrition Evidence of Malnutrition Exists Yes Malnutrition (severe): Acute Illness/Injury Evidenced By Suboptimal Energy Intake ( Severe),Weight Loss (Severe) Intake Problem Inadequate Oral Intake Status Inactive Problem Clinical Problem Acute Disease or Injury Related Malnutrition Etiology related to inadequate energy intake Signs/Symptoms as evidenced by NPO/clear liquid diet since adm and 2.5% wt loss x 3 days. Status Active Problem Recommendation Dietitian Recommendations/Changes Recommend advance diet as tolerated to 2000 calorie/ consistent carbohydrate; cardiac when medically able Will order 8 oz ensure clear tid w/ meals for increased nutrition if consumed. Lab / Micro Data 03/08/24 06:34 03/08/24 06:34 Labs: Laboratory Results - last 24 hr 03/04/24 14:05: Crossmatch See Detail 03/07/24 09:05: Total Bilirubin 1.00, Direct Bilirubin 0.37 H, AST 35, ALT 28, Alkaline Phosphatase 149 H, Total Protein 6.3 L, Albumin 2.7 L, Globulin 3.6 03/08/24 06:34: WBC 5.6, RBC 4.54 L, Hgb 13.4, Hct 39.8 L, MCV 87.7, MCH 29.5, MCHC 33.7, RDW Std Deviation 42.5, RDW Coeff of Samm 13.2, Plt Count 208, MPV 11.1, Immature Gran % (Auto) 0.400, Neut % (Auto) 67.6, Lymph % (Auto) 18.9 L, [place] % (Auto) 8.3, Eos % (Auto) 3.9, Baso % (Auto) 0.9, Absolute Neuts (auto) 3.8, Absolute Lymphs (auto) 1.05, Nucleated RBC % 0, Sodium 137, Potassium 3.6, Chloride 107, Carbon Dioxide 25.0, Anion Gap 5, BUN 9, Creatinine 1.06, Estim Creat Clear Calc 70.90, Est GFR (MDRD) Af Amer 88, Est GFR (MDRD) Non-Af 73, BUN/Creatinine Ratio 8.5 L, Glucose 142 H, Calcium 8.8, Total Bilirubin 0.90, Direct Bilirubin 0.31 H, AST 23, ALT 23, Alkaline Phosphatase 145 H, Total Protein 6.2 L, Albumin 2.7 L, Globulin 3.5 Physical Exam Const alert, oriented x3 and no apparent distress GI GI Narrative: Abdomen- soft, slight tenderness at the STACEY drain site-serosang, more sang. Incisions c/d/i. No erythema or infection noted. STACEY drain was stripped. Assessment & Plan Assessment/Plan (1) S/P laparoscopic surgery: (2) Acute cholecystitis: (3) NAFLD (nonalcoholic fatty liver disease): PLAN: Plan uri fulls denies abd pain, will advance to regular diet and change back to clears once bed is available., await transfer bed to [facility]-- hopefully available today continue zosyn IV Hb stable Julienne Pires M.D. Pager: [phone] [facility] [address] [place] [address], [facility], [address] [place] [address] Office: [phone]
[2024-03-08] MEDS: amLODIPine 10 MG Tablet PO (07:48)
[2024-03-08] MEDS: Lisinopril 40 MG Tablet PO (07:49)
[2024-03-08 07:50] VITALS: BP 151/76; PULSE 57; RESP 18; TEMP 36.8; O2SAT 96
[2024-03-08 10:00] VITALS: BP 121/66; PULSE 64; RESP 18; TEMP 37.2; O2SAT 98
[2024-03-08] MEDS: Pantoprazole Sodium 40 MG in 0.9% Normal Saline (100mL MB+) 100 ML 330 MG IV (11:24)
[2024-03-08] MEDS: Famotidine 20 MG Tablet PO (13:12)
[2024-03-08 15:33] VITALS: BP 132/68; PULSE 68; RESP 18; TEMP 36.8; O2SAT 96
[2024-03-08 18:40] VITALS: BP 132/68; PULSE 68; RESP 18; TEMP 36.4; O2SAT 98
== END 2024-03-08 21:40 | disposition short-term general hospital (02) | DRG 409 ==
LOC: ED 16:07 → MS3 16:21
PROVIDERS: Anesthesiology; Physician Assistant; Admitting Provider Surgery; Emergency Provider Emergency Medicine; PCP Family Medicine; Visit Provider Surgery
PROC: 0F9440Z Drainage of Gallbladder with Drainage Device, Percutaneous Endoscopic Approach (ICD-10-PCS; CPT 47610; principal; 2024-03-04 12:10)
DX: K80.00 Calculus of gallbladder with acute cholecystitis without obstruction (principal); E44.1 Mild protein-calorie malnutrition; K91.61 Intraoperative hemorrhage and hematoma of a digestive system organ or structure complicating a digestive system procedure; K74.60 Unspecified cirrhosis of liver; E11.9 Type 2 diabetes mellitus without complications; J44.9 Chronic obstructive pulmonary disease, unspecified; I10 Essential (primary) hypertension; F17.210 Nicotine dependence, cigarettes, uncomplicated; F17.220 Nicotine dependence, chewing tobacco, uncomplicated; E78.00 Pure hypercholesterolemia, unspecified; K75.81 Nonalcoholic steatohepatitis (NASH); K29.70 Gastritis, unspecified, without bleeding; K82.8 Other specified diseases of gallbladder; Z79.899 Other long term (current) drug therapy; Z79.82 Long term (current) use of aspirin; Y83.8 Other surgical procedures as the cause of abnormal reaction of the patient, or of later complication, without mention of misadventure at the time of the procedure; Y92.234 Operating room of hospital as the place of occurrence of the external cause; Z53.8 Procedure and treatment not carried out for other reasons; Z68.29 Body mass index [BMI] 29.0-29.9, adult
CPT/HCPCS: 36415; 74177; 76705; 80048; 80053; 80076; 81001; 82248; 83036; 83690; 84484; 85014; 85018; 85025; 85610; 85730; 86850; 86900; 86901; 86920; 86922; 93005; 96361; 96374; 96375; 96376; 97802; 99283; 99284; J7030; J7040; J7050; Q9967; A4216; J2405; J3490

== ENCOUNTER → 2024-08-11 | Outpatient (CLI) | payer MEDICARE, MEDICAID, SELFPAY ==
--- NOTE | 2024-08-11 08:34 | US_ITS ---
PROCEDURE: ABD LIMITED W/ ELASTOGRAPHY REASON FOR EXAM: History of cirrhosis. COMPARISON: None. TECHNIQUE: Right upper quadrant abdominal ultrasound. Sera ElastQ Imaging shear wave elastography for non-invasive assessment of liver tissue stiffness. Sera EPIQ Elite. FINDINGS: LIVER: Size: Enlarged (hepatomegaly) Length: 17.8 cm Echotexture: Diffusely echogenic suggesting fatty infiltration Contour: Normal Lesions: None identified Elastography: EQI Med: 10.5 kPa EQI Med Joel: 1.9 m/s IQR/Med: 18 %* GALLBLADDER: Surgically absent.. There is a 1.7 cm x 1.6 cm x 1.8 cm fluid collection in the gallbladder fossa. COMMON BILE DUCT: Normal . PANCREAS: Normal Visualized portions of the right kidney are unremarkable. No right upper quadrant ascites.. There is a 2.1 cm x 2 cm x 2 cm right renal cyst. US/ABD Limited w/ Elastography IMPRESSION: MODERATE TO SEVERE HEPATIC FIBROSIS Small fluid collection in the gallbladder fossa. Right renal cysts. Reference Values: SRU <1.37 m/s (5.7kPa): No to mild fibrosis 1.37 m/s - 2.2 m/s: Moderate to severe fibrosis >2.2 m/s (15kPa): Significant fibrosis / cirrhosis METAVIR Score F2 or higher: 1.34 m/s (5.7kPa) F3 or higher: 1.55 m/s (7.3kPa) F4: 1.80 m/s (10kPa) * If the IQR/Med is >30%, the variance in the measurements is a large and the a ccuracy of the measurement may be in question. Reading Location: [id number]
[2024-08-11 09:29] LABS: Absolute Lymphocyte Count 1.25 X10^3/uL (0.83-4.51); Absolute Neutrophil Count 3.8 X10^3/uL (2.0-7.7); Basophil# 0.06 X10^3/uL; Basophil% 1.1 % (0-1); Eosinophil# 0.15 X10^3/uL; Eosinophils% 2.6 % (0-5); Hematocrit 44.5 % (40-54); Hemoglobin 14.7 g/dL (13.0-16.5); Lymphocyte # 1.25 X10^3/ul (0.83-4.51); Lymphocyte % 21.9 % (19-41); Mean Corpuscular Hgb 28.2 pg (27.0-32.0); Mean Corpuscular Volume 85.2 fL (80-94); Mean Platelet Vol. 12.1 fl (6.2-12.0); Monocyte# 0.38 X10^3/uL; Monocyte% 6.7 % (0-10); NRBC Flagged by Analyzer 0 % (0-5); Neutrophil # 3.84 X10^3/uL (2.7-7.7); Neutrophil % 67.3 % (47-70); Platelet Count 159 K/mm3 (150-450); RBC Distribution Width CV 13.8 % (11.6-14.6); RBC Distribution Width SD 42.7 fl (35.1-43.9); Red Blood Count 5.22 M/mm3 (4.6-6.2); White Blood Count 5.7 K/mm3 (4.4-11.0)
[2024-08-11 09:38] LABS: AST(SGOT) 21 U/L (15-37); Alanine Aminotransfer ALT/SGPT 20 U/L (16-61); Albumin, Serum 3.4 g/dL (3.2-5.0); Alkaline Phosphatase 126 U/L (45-117); Anion Gap 8 (5-15); BUN 11 mg/dL (7-18); BUN/Creat Ratio 10.2 RATIO (10-20); Chloride 110 mmol/L (98-107); Creatinine, Serum 1.08 mg/dL (0.70-1.30); EST Glomerular Filtration Rate 71 mL/min (>60); Est Glom Filt Rate - Afr Amer 86 mL/min (>60); Globulin 3.5 g/dL (2.2-4.2); Glucose 107 mg/dL (74-106); Protein, Total 6.9 g/dL (6.4-8.2); Sodium Level 142 mmol/L (136-145)
[2024-08-11 09:53] LABS: Vitamin D,25 Hydroxy 18.6 ng/mL
[2024-08-11 10:31] LABS: International Normalized Ratio 1.1; Prothrombin Time (Protime)PT. 14.4 SECONDS (11.7-14.9)
== END | disposition home or self-care (01) ==
LOC: US 08:33
PROVIDERS: PCP Family Medicine; Referring Provider Internal Medicine; Visit Provider Internal Medicine
DX: K74.69 Other cirrhosis of liver (principal); E66.9 Obesity, unspecified; K76.0 Fatty (change of) liver, not elsewhere classified; R74.8 Abnormal levels of other serum enzymes
CPT/HCPCS: 36415; 76705; 76981; 80053; 82140; 82306; 85025; 85610

== ENCOUNTER → 2025-01-13 | Outpatient (CLI) | payer MEDICARE, MEDICAID, SELFPAY ==
--- NOTE | 2025-01-13 08:00 | PROSBIL_PTH ---
PATIENT: WILMER BARAJAS Jr. LOC: [facility] U#:[id number] AGE/SX: 74/M ROOM: RE01/13/[address]: Dr. Dre Nash MD : [id number] BED: DIS: 01/13/2025 SPEC #: [id number] RECD: 01/13/25 16:35 STATUS: ANKUSH REQ #: [id number] KEITH: 01/13/25 08:[address]: Dre Nash DEPT: SURGICAL PATHOLOGY RECD BY: Carlos Sanches ENTERED: 01/14/25 10:45 SP TYPE: PROST BX PAUL DR: Dr. Michael Cannon MD Tissues: A - PROSTATE RIGHT B - PROSTATE RIGHT C - PROSTATE RIGHT D - PROSTATE LEFT E - PROSTATE LEFT F - PROSTATE LEFT Procedures: PROSTATE BX Immunohistochemical Stains HEADER OPERATION: Prostate biopsy PRE-OP DIAGNOSIS: Elevated PSA TISSUE SUBMITTED: A - Right apex, B - Right mid, C - Right base, D - Left apex, E - Left mid, F - Left base MICROSCOPIC DIAGNOSIS A. Prostate, right, apex, biopsy: - Benign prostate tissue. B. Prostate, right, mid, biopsy: - Benign prostate tissue. - IHC for [id number] supports the histologic impression. C. Prostate, right, base, biopsy: - Benign prostate tissue. D. Prostate, left, apex, biopsy: - Benign prostate tissue. E. Prostate, left, mid, biopsy: - Benign prostate tissue. F. Prostate, left, base, biopsy: - Benign prostate tissue with mild acute inflammation. MICROSCOPIC DESCRIPTION Slides are reviewed. All matched controls reacted appropriately. These tests were developed and their performance characteristics determined by [facility]. They may not have been cleared or approved by the [place]. Food and Drug Administration. The FDA has determined that such clearance or approval is not necessary. The above immunohistochemical/dualISH markers are reviewed by the Pathologist. GROSS DESCRIPTION Received in 6 formalin containers labeled with the patient's name and date of . Designated as: A. "RA" is a fragmented chavez tissue core, 1.4 cm in length by 0.1 cm in diameter. Entirely submitted in 1 cassette. B. "RM" is a fragmented chavez tissue core, 1.4 cm in length by 0.1 cm in diameter. Entirely submitted in 1 cassette. C. "RB" is a chavez tissue core, 1.5 cm in length by 0.1 cm in diameter. Entirely submitted in 1 cassette. D. "LA" is a chavez tissue core, 1.4 cm in length by 0.1 cm in diameter. Entirely submitted in 1 cassette. E. "LM" is a fragmented chavez tissue core, 1.7 cm in length by 0.1 cm in diameter. Entirely submitted in 1 cassette. F. "LB" is a fragmented chavez tissue core, 1.4 cm in length by 0.1 cm in diameter. Entirely submitted in 1 cassette. MO 01/14/2025 CPT:48334s1,39670
== END | disposition home or self-care (01) ==
LOC: LABSPEC 15:43
PROVIDERS: PCP Family Medicine; Referring Provider Urology; Visit Provider Urology
DX: R97.20 Elevated prostate specific antigen [PSA] (principal)
CPT/HCPCS: 88305; 88342; G0416